=== PATIENT | female | born 1975 ===

== ENCOUNTER 2021-03-09 06:44 | Emergency (ER) | payer MEDICAID, SELFPAY ==
[2021-03-09 06:59] VITALS: BP 130/64; PULSE 55; RESP 18; TEMP 36.1; O2SAT 99; BMI 24.1
--- NOTE | 2021-03-09 07:54 | ED.ABDPAIN ---
HPI - Abdominal Pain General Chief Complaint: Abdominal Pain Stated Complaint: IBS; painful vomiting for 7+ hrs Time Seen by Provider: 03/09/21 07:46 Source: patient Mode of arrival: ambulatory History of Present Illness HPI narrative: this is a 46 years old the female who presented to the emergency department with chief complaint of abdominal pain nausea vomiting and diarrhea since yesterday MD elicited complaint: abdominal pain Pertinent past history: other (hx of IBS) Onset (ago): day(s) (1) Pain Consistency: constant Location: diffuse Quality: cramping Migration to: no migration Relieving factors: nothing Related Data Allergies Allergy/AdvReac Type Severity Reaction Status Date / Time No Known Allergies Allergy Unverified 11/06/19 16:37 [No Known Allergies*] Review of Systems Review of Systems Yes all other systems are reviewed and are negative Constitutional: Reports no additional constitutional complaints Eyes: Reports no additional eye complaints Reports system reviewed and no additional complaints, except as documented Cardiovascular: Reports no additional cardiovascular complaints Respiratory: Reports no additional respiratory complaints Reports system reviewed and no additional complaints, except as documented Physical Exam Vital Signs: Vital Signs: Last Vital Signs Temp 97.9 F 03/09/21 10:56 Pulse 67 03/09/21 10:56 Resp 14 03/09/21 10:56 BP 96/69 03/09/21 10:56 Pulse Ox 97 03/09/21 10:56 BMI result Body Mass Index 24.1 Const: General: cooperative Nutritional Appearance: well nourished Orientation/consciousness: patient oriented x3 HENMT: Head: Yes normal to inspection and Yes No palpable skull fracture present Ears: hearing grossly normal bilaterally General nose exam: Normal external nose present Face and sinus: Yes normal facial exam Mouth: Normal oral and palatal mucosa present Throat: Yes posterior oropharynx normal Neck: Neck: Yes normal visual inspection and Yes full ROM Chest: Chest palpation & inspection: normal inspection of the chest Resp: Effort & Inspection: normal respiratory effort and able to speak in complete sentences Auscultation: clear to auscultation bilaterally Cardio: Jugular venous distension: no JVD Rate: regular rate Rhythm: regular rhythm GI: Inspection: Yes normal to inspection Palpation (GI): Soft to palpation, not firm and nontender Percussion: Yes normal to percussion Auscultation: normal bowel sounds : General: Yes no CVA tenderness Back/Spine/Pelvis: Back: no CVA tenderness Neuro: General: patient oriented x3 Course Reevaluation(s) Reevaluation #1: patient was re-examined at this time 11:00, she is completely asymptomatic, she has no abdominal pain whatsoever. She wants to be discharged home. We discussed the CT scan number the patient refuse I do not need ct scan I feel great MDM - Abdominal Pain Lab Data Result diagrams: 03/09/21 08:15 03/09/21 08:15 Labs: Lab Results 03/09/21 03/09/21 03/09/21 Range/Units 08:15 08:15 08:15 WBC 14.0 H (4.8-10.8) X10*3/uL RBC 4.13 L (4.20-5.50) X10*6/uL Hgb 12.9 (12.0-16.0) g/dl Hct 38.3 (37.0-47.0) % MCV 92.7 (80.0-98.0) fL MCH 31.2 (27.0-33.0) pg MCHC 33.7 (31.0-35.0) g/dl RDW 12.6 (11.0-16.0) % Plt Count 232 (160-400) X10*3/uL MPV 11.1 (9.4-12.3) fL Immature Gran % (Auto) 0.4 (0.0-0.4) % Neut % (Auto) 86.5 H (45-73) % Lymph % (Auto) 10.2 L (20-40) % [place] % (Auto) 2.6 (2-11) % Eos % (Auto) 0.0 (0-4) % Baso % (Auto) 0.3 (0-2) % Lymph # (Auto) 1.4 (1.2-4.9) X10*3/uL [place] # (Auto) 0.4 (0.1-1.2) X10*3/uL Eos # (Auto) 0.0 (0.0-0.4) X10*3/uL Baso # (Auto) 0.0 (0.0-0.2) X10*3/uL Abs Immat Gran (auto) 0.06 H (0.00-0.03) X10*3/uL Absolute Neuts (auto) 12.1 H (2.0-8.3) x10*3/uL Absolute Nucleated RBC 0.000 (0.0-0.012) X10*3/uL Nucleated RBC % (auto) 0.0 (0.0-0.2) /100WBC Sodium 141 (135-145) mmol/L Potassium 3.8 (3.3-5.1) mmol/L Chloride 105 (96-108) mmol/L Carbon Dioxide 25 (22-29) mmol/L Anion Gap 15 (12-20) BUN 16 (9-16) mg/dL Creatinine 0.80 (0.5-1.4) mg/dL Estim Creat Clear Calc 79.9 Estimated GFR > 60 Random Glucose 140 H (60-115) mg/dL Calcium 10.1 (8.4-10.2) mg/dL Total Bilirubin 0.7 (0.0-1.0) mg/dL AST 16 (5-31) U/L ALT 20 (0-31) U/L Alkaline Phosphatase 66 (39-117) U/L Total Protein 8.2 H (6.5-8.0) g/dL Albumin 4.6 (3.5-5.0) g/dL Lipase 12 (8-78) U/L Beta HCG, Quant < 2 mIU/mL Discharge Plan Discharge Clinical Impression: Abdominal pain Patient Disposition: Home, Self-Care Instructions: Abdominal Pain (ED), Acute Nausea and Vomiting (ED) Additional Instructions: follow-up with your primary care physician or return to the emergency room if you worse a clear liquid diet today Interventions: ED Discharge Assessment Last Done: 03/09/21 11:18 Discharge Date/Time: 03/09/21 11:19 [facility] Past Medical History Source: unable to obtain Medical History (Updated 03/09/21 @ 11:02 by Mikhail Perkins MD) Irritable bowel Social History Social History Alcohol intake: never Patient Tobacco Use Status: Never used Tobacco Use of substances other than those prescribed or required for medical reasons: No Advance Directives: No Advance Directives Information Provided: No Patient : No
[2021-03-09 08:22] LABS: MANUAL DIFF FLAG NO
[2021-03-09 08:27] LABS: Basophils Percent Auto 0.3 % (0-2); Hematocrit 38.3 % (37.0-47.0); Hemoglobin 12.9 g/dl (12.0-16.0); Imm Gran Abs Auto 0.06 X10*3/uL (0.00-0.03); Imm Gran Pct Auto 0.4 % (0.0-0.4); Lymphocytes Absolute Auto 1.4 X10*3/uL (1.2-4.9); Lymphocytes Percent Auto 10.2 % (20-40); Mean Corpuscular HGB Conc 33.7 g/dl (31.0-35.0); Mean Corpuscular Hemoglobin 31.2 pg (27.0-33.0); Mean Corpuscular Volume 92.7 fL (80.0-98.0); Mean Platelet Volume 11.1 fL (9.4-12.3); Monocytes Absolute Auto 0.4 X10*3/uL (0.1-1.2); Monocytes Percent Auto 2.6 % (2-11); Neutrophils Absolute Auto 12.1 x10*3/uL (2.0-8.3); Neutrophils Percent Auto 86.5 % (45-73); Platelet Count 232 X10*3/uL (160-400); Red Blood Count 4.13 X10*6/uL (4.20-5.50); Red Cell Distribution Width 12.6 % (11.0-16.0)
[2021-03-09] MEDS: 0.9 % Sodium Chloride 1,000 ML 999 ML IVCONT (08:44)
[2021-03-09] MEDS: HYDROmorphone HCl 0.5 MG/0.5 ML SYRINGE IVPUSH (08:44)
[2021-03-09] MEDS: ondansetron HCL 4 MG/2 ML VIAL IVPUSH (08:44)
[2021-03-09 08:47] LABS: Alanine Aminotransferase 20 U/L (0-31); Albumin Level 4.6 g/dL (3.5-5.0); Alkaline Phosphatase 66 U/L (39-117); Anion Gap 15 (12-20); Aspartate Amino Transferase 16 U/L (5-31); Bilirubin Total 0.7 mg/dL (0.0-1.0); Blood Urea Nitrogen 16 mg/dL (9-16); Calcium 10.1 mg/dL (8.4-10.2); Carbon Dioxide 25 mmol/L (22-29); Chloride 105 mmol/L (96-108); Creatinine Clr Calc Pharmacy 79.9; Estimated Glomerular Filt Rate > 60; Glucose Random 140 mg/dL (60-115); Lipase 12 U/L (8-78); Potassium 3.8 mmol/L (3.3-5.1); Sodium 141 mmol/L (135-145); Total Protein 8.2 g/dL (6.5-8.0)
[2021-03-09 08:51] LABS: HCG Quantitative < 2 mIU/mL
[2021-03-09 09:44] VITALS: BP 100/52; PULSE 74; RESP 15; TEMP 37.2; O2SAT 98
[2021-03-09 10:56] VITALS: BP 96/69; PULSE 67; RESP 14; TEMP 36.6; O2SAT 97
== END 2021-03-09 11:19 | disposition home or self-care (01) ==
PROVIDERS: Emergency Provider Emergency Medicine
DX: K58.9 Irritable bowel syndrome, unspecified (principal); R10.9 Unspecified abdominal pain; Z79.899 Other long term (current) drug therapy
CPT/HCPCS: 36415; 80053; 83690; 84702; 85025; 96361; 96374; 96375; 99284; J1170; J2405

== ENCOUNTER 2021-05-22 10:13 | Emergency (ER) | payer MEDICAID, SELFPAY ==
[2021-05-22 10:16] VITALS: BP 133/72; PULSE 59; RESP 18; TEMP 36.2; O2SAT 99; BMI 25.0
[2021-05-22 11:42] VITALS: BP 113/61; PULSE 53; RESP 20; O2SAT 100
--- NOTE | 2021-05-22 11:48 | ED_ITS ---
HPI - Nausea/Vomiting/Diarrhea General Chief complaint: Nausea/Vomiting/Diarrhea Stated complaint: vomiting Time Seen by Provider: 05/22/21 11:35 Source: patient Mode of arrival: ambulatory History of Present Illness HPI Narrative: 46-year-old female with a past medical history of IBS presenting to the ED complaining of nausea, vomiting, nonbloody diarrhea, and abdominal pain since 04:00AM. Admits to similar symptoms in the past with her IBS. Reports chills. Denies fever, constipation, dysuria/hematuria, suspicious food intake. States unable to tolerate p.o. MD elicited complaint: nausea, vomiting, diarrhea and abdominal pain Onset (ago): hour(s) Related Data Allergies Allergy/AdvReac Type Severity Reaction Status Date / Time No Known Allergies Allergy Unverified 05/22/21 10:19 [No Known Allergies*] Review of Systems Review of Systems: Constitutional: No Fever, + Chills, No Fatigue, No Malaise ENT/Mouth: No Ear Pain, No Nasal Congestion, No Hoarseness, No sore throat, No Rhinorrhea, No Swallowing Difficulty Eyes: No Eye Pain, No Swelling, No Redness Cardiovascular: No Chest Pain, No SOB, No Dyspnea on Exertion, No Orthopnea, No Edema, No Palpitations Respiratory: No Cough, No Sputum, No Dyspnea Gastrointestinal: + Nausea, + Vomiting, + Diarrhea, No Constipation, + Abdominal pain, No Hematochezia, No Melena Genitourinary: No Dysuria, No Urinary Frequency, No Hematuria, No Flank Pain, No Urinary Flow Changes Musculoskeletal: No joint pain, No Myalgias, No Joint Swelling Skin: No Skin Lesions, No rash Neuro: No Weakness, No Numbness, No Dizziness, No Headache Yes all other systems are reviewed and are negative [facility] Past Medical History Attestation statement: The following information was validated with the patient. Medical History Irritable bowel Social History Social History Alcohol intake: never Patient Tobacco Use Status: Never used Tobacco Advance Directives: No Advance Directives Information Provided: No Patient : No Physical Exam Vital Signs: Vital Signs: Last Vital Signs Temp 98.8 F 05/22/21 15:25 Pulse 60 05/22/21 15:25 Resp 16 05/22/21 15:25 BP 118/58 L 05/22/21 15:25 Pulse Ox 97 05/22/21 15:25 BMI result Body Mass Index 25.0 Const: General: cooperative and no acute distress Orientation/consciousness: patient oriented x3 Limitations: no limitations HEENT: Head: Yes normal to inspection and Yes atraumatic Ears: hearing grossly normal bilaterally General nose exam: Normal external nose present Face and sinus: Yes normal facial exam Eyes: General: appearance normal, both eyes and all related structures EOM: EOMs intact bilaterally Neck: Neck: Yes normal visual inspection and Yes no meningeal signs Resp: Effort & Inspection: normal respiratory effort and no respiratory distress Auscultation: clear to auscultation bilaterally Cardio: Rate: regular rate Heart sounds: S1 normal heart sound present and S2 normal heart sound present GI: Inspection: Yes normal to inspection Palpation (GI): Soft to palpation, nontender, no guarding and not rigid Skin: Rashes: no rashes Wounds: no wounds Neuro: General: patient oriented x3 and no meningeal signs Gait exam (Neuro): Normal gait present Extrem: General: Yes normal to inspection Course Course Course Narrative: -1212--leukocytosis of 15.8 likely reactive from nausea/vomiting. Low concern f or severe sepsis -1314--potassium 5.3 however specimen hemolyzed, ALT mildly elevated to 35 -1400--on re-evaluation patient reports continued nausea. Requesting additional morphine, IVF and Reglan. Discussed CT scan however patient refused. Abdomen remains soft and nontender -1500--on re-evaluation patient denies abdominal pain. Will attempt p.o. challenge -1656--on re-evaluation patient is sleeping comfortably. Tolerated p.o. Glenna Mayra and saltines without nausea or vomiting. Plan to DC home with GI f/u MDM - Nausea/Vomiting/Diarrhea MDM Narrative Medical decision making narrative: 46-year-old female with a past medical history of IBS presenting to the ED complaining of nausea, vomiting, nonbloody diarrhea, and abdominal pain since 04:00AM. On exam vital signs stable, NAD/nontoxic appearing, abdomen soft/nontender. Concern for IBS flare vs dehydration vs gastroenteritis. Low concern for appendicitis/diverticulitis/pancreatitis/renal stone Plan: Labs, UA, IVF, symptomatic treatment, re-evaluate Differential Diagnosis Differential diagnosis: Likely food poisoning, gastroenteritis and dehydration Medical Records Attestation: I reviewed the patient's medical records. Lab Data Attestation: I reviewed the patient's lab results. Result diagrams: 05/22/21 11:53 05/22/21 12:42 Labs: Lab Results 05/22/21 05/22/21 Range/Units 11:53 12:42 WBC 15.8 H (4.8-10.8) X10*3/uL RBC 4.19 L (4.20-5.50) X10*6/uL Hgb 13.1 (12.0-16.0) g/dl Hct 38.6 (37.0-47.0) % MCV 92.1 (80.0-98.0) fL MCH 31.3 (27.0-33.0) pg MCHC 33.9 (31.0-35.0) g/dl RDW 12.9 (11.0-16.0) % Plt Count 244 (160-400) X10*3/uL MPV 11.3 (9.4-12.3) fL Immature Gran % (Auto) 0.5 H (0.0-0.4) % Neut % (Auto) 86.3 H (45-73) % Lymph % (Auto) 10.4 L (20-40) % [place] % (Auto) 2.3 (2-11) % Eos % (Auto) 0.1 (0-4) % Baso % (Auto) 0.4 (0-2) % Lymph # (Auto) 1.6 (1.2-4.9) X10*3/uL [place] # (Auto) 0.4 (0.1-1.2) X10*3/uL Eos # (Auto) 0.0 (0.0-0.4) X10*3/uL Baso # (Auto) 0.1 (0.0-0.2) X10*3/uL Abs Immat Gran (auto) 0.08 H (0.00-0.03) X10*3/uL Absolute Neuts (auto) 13.7 H (2.0-8.3) x10*3/uL Absolute Nucleated RBC 0.000 (0.0-0.012) X10*3/uL Nucleated RBC % (auto) 0.0 (0.0-0.2) /100WBC Sodium 139 (135-145) mmol/L Potassium 5.3 H D (3.3-5.1) mmol/L Chloride 108 (96-108) mmol/L Carbon Dioxide 20 L (22-29) mmol/L Anion Gap 16 (12-20) BUN 16 (9-16) mg/dL Creatinine 0.88 (0.5-1.4) mg/dL Estim Creat Clear Calc 72.6 Estimated GFR > 60 Random Glucose 151 H (60-115) mg/dL Calcium 9.3 D (8.4-10.2) mg/dL Magnesium 1.9 (1.6-2.6) mg/dL Total Bilirubin 0.7 (0.0-1.0) mg/dL Direct Bilirubin 0.2 (0.0-0.5) mg/dL AST 31 D (5-31) U/L ALT 35 H (0-31) U/L Alkaline Phosphatase 70 (39-117) U/L Total Protein 7.9 (6.5-8.0) g/dL Albumin 4.3 (3.5-5.0) g/dL Lipase 10 (8-78) U/L Discharge Plan Discharge Clinical Impression: Irritable bowel syndrome (IBS) Patient Disposition: Home, Self-Care Instructions: Irritable Bowel Syndrome (DC) Additional Instructions: Your blood work was reassuring today in the ED. Please continue home prescribed medications. 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 If you are unable to eat or drink, developed fever, persistent nausea or vomi ting, please return to the emergency department Referrals: Physician,Unknown J [Primary Care Provider] - 2 days
[2021-05-22 11:56] LABS: MANUAL DIFF FLAG NO
[2021-05-22] MEDS: ondansetron HCL 4 MG/2 ML VIAL IVPUSH (11:58)
[2021-05-22] MEDS: Ketorolac Tromethamine 15 MG/ML VIAL IVPUSH (11:58)
[2021-05-22] MEDS: Famotidine/PF 20 MG/2 ML VIAL IVPUSH (11:59)
[2021-05-22] MEDS: Magnesium Hydrox/Alum Hydrox 30 ML ORAL.SUSP PO (11:59)
[2021-05-22] MEDS: 0.9 % Sodium Chloride 1,000 ML 999 ML IV ×3 (11:59→15:57)
[2021-05-22] MEDS: Dicyclomine HCl 10 MG CAPSULE 20 MG PO (11:59)
[2021-05-22 12:02] LABS: Basophils Absolute Auto 0.1 X10*3/uL (0.0-0.2); Basophils Percent Auto 0.4 % (0-2); Eosinophils Percent Auto 0.1 % (0-4); Hematocrit 38.6 % (37.0-47.0); Hemoglobin 13.1 g/dl (12.0-16.0); Imm Gran Abs Auto 0.08 X10*3/uL (0.00-0.03); Imm Gran Pct Auto 0.5 % (0.0-0.4); Lymphocytes Absolute Auto 1.6 X10*3/uL (1.2-4.9); Lymphocytes Percent Auto 10.4 % (20-40); Mean Corpuscular HGB Conc 33.9 g/dl (31.0-35.0); Mean Corpuscular Hemoglobin 31.3 pg (27.0-33.0); Mean Corpuscular Volume 92.1 fL (80.0-98.0); Mean Platelet Volume 11.3 fL (9.4-12.3); Monocytes Absolute Auto 0.4 X10*3/uL (0.1-1.2); Monocytes Percent Auto 2.3 % (2-11); Neutrophils Absolute Auto 13.7 x10*3/uL (2.0-8.3); Neutrophils Percent Auto 86.3 % (45-73); Platelet Count 244 X10*3/uL (160-400); Red Blood Count 4.19 X10*6/uL (4.20-5.50); Red Cell Distribution Width 12.9 % (11.0-16.0); White Blood Count 15.8 X10*3/uL (4.8-10.8)
[2021-05-22] MEDS: Morphine Sulfate 2 MG/ML CARTRIDGE IVPUSH ×2 (12:33→14:11)
[2021-05-22] MEDS: Metoclopramide HCl 10 MG/2 ML VIAL IVPUSH (12:33)
[2021-05-22 13:05] LABS: Alanine Aminotransferase 35 U/L (0-31); Albumin Level 4.3 g/dL (3.5-5.0); Alkaline Phosphatase 70 U/L (39-117); Anion Gap 16 (12-20); Aspartate Amino Transferase 31 U/L (5-31); Bilirubin Direct 0.2 mg/dL (0.0-0.5); Bilirubin Total 0.7 mg/dL (0.0-1.0); Blood Urea Nitrogen 16 mg/dL (9-16); Calcium 9.3 mg/dL (8.4-10.2); Carbon Dioxide 20 mmol/L (22-29); Chloride 108 mmol/L (96-108); Creatinine Clr Calc Pharmacy 72.6; Estimated Glomerular Filt Rate > 60; Glucose Random 151 mg/dL (60-115); Lipase 10 U/L (8-78); Magnesium 1.9 mg/dL (1.6-2.6); Potassium 5.3 mmol/L (3.3-5.1); Sodium 139 mmol/L (135-145); Total Protein 7.9 g/dL (6.5-8.0)
[2021-05-22 13:44] VITALS: BP 119/49; PULSE 48; RESP 18; O2SAT 99
[2021-05-22] MEDS: diphenhydrAMINE HCL 50 MG/ML VIAL IVPUSH (14:11)
[2021-05-22 15:25] VITALS: BP 118/58; PULSE 60; RESP 16; TEMP 37.1; O2SAT 97
[2021-05-22] MEDS: Prochlorperazine Edisylate 10 MG/2 ML VIAL 5 MG IVPUSH (15:42)
== END 2021-05-22 17:34 | disposition home or self-care (01) ==
PROVIDERS: Physician Assistant; Emergency Provider Emergency Medicine Emergency Medical Services
DX: K58.0 Irritable bowel syndrome with diarrhea (principal); R11.2 Nausea with vomiting, unspecified; R19.7 Diarrhea, unspecified; Z79.899 Other long term (current) drug therapy
CPT/HCPCS: 36415; 80048; 80076; 83690; 83735; 85025; 96374; 96375; 99284; J1200; J1885; J2270; J2405; J2765

== ENCOUNTER 2022-12-12 09:44 | Outpatient (AMB) | payer OTHER, SELFPAY ==
[2022-12-12 09:49] VITALS: BP 122/74; PULSE 69; O2SAT 100; BMI 25.8
--- NOTE | 2022-12-12 09:49 | MHC.PC.OV ---
Vital Signs 12/12/22 09:49 Height 5 ft 5 in Weight 155 lb 0.4 oz BMI 25.8 BP 122/74 Blood Pressure Location Lt brachial Position Sitting Pulse 69 Pulse Source Pulse Oximeter Pulse Oximetry (%) 100 Oxygen Delivery Method Room Air Intake Visit Reasons: New patient-Transfer from [employer] Required: No Allergies No Known Allergies [No Known Allergies*] Allergy (Verified 12/12/22 09:53) Medication List - Last Reconciled 12/12/22 by Kely Morrell MD cetirizine 10 mg PO DAILY PRN cholecalciferol (vitamin D3) 50 mcg PO DAILY Tobacco use date assessed: 12/12/22 Dental Screening Dental Screen Date: 12/12/22 Did you have a dental visit in the last 12 months?: Yes Did you have a dental problem in the last 6 months where you did not have access to dental care?: No Was dental information given to patient?: Patient has dentist HPI New patient-Transfer from HPI Details 47-year-old female smoker with a history of IBS, generalized anxiety disorder and history of nephrolithiasis. Declined blood work, declined vaccinations, declined referral for counseling did discuss strongly about stopping smoking! [facility] Medical History Irritable bowel Family History (Updated 12/12/22 @ 10:26 by Kely Morrell MD) Father Heart attack Maternal Grandmother Jaw cancer Breast cancer Paternal Grandmother Oral cancer Social History (Updated 12/12/22 @ 10:28 by Kely Morrell MD) Housing: Apartment Alcohol intake: never Patient Tobacco Use Status: Current everyday Tobacco user Cigarette Packs Per Day: 0.5 Years Smoked: 1/4 pack a day 30 years. e-Cigarette/Vaping Use: Never Used service: No Current occupational status: retired Cognitive needs: No Hearing needs: No Vision needs: No Questionnaire PHQ-9 Over the last 2 weeks, how often have you been bothered by any of the following problems? 1. Little interest or pleasure in doing things: not at all 2. Feeling down, depressed, or hopeless: not at all 3. Trouble falling or staying asleep, or sleeping too much: not at all 4. Feeling tired or having little energy: not at all 5. Poor appetite or overeating: not at all 6. Feeling bad about yourself - or that you are a failure or have let yourself or your family down: not at all 7. Trouble concentrating on things, such as reading the newspaper or watching television: not at all 8. Moving or speaking so slowly that other people could have noticed. Or the opposite - being so fidgety or restless that you have been moving around a lot more than usual: not at all 9. Thoughts that you would be better off or of hurting yourself in some way: not at all Total score: 0 Depression Screening Interpretation: Negative Depression Screening Done: Yes Source: Developed by Drs. Darrel Vega, Cindy Jacobs, David Grey and colleagues, with an educational zehra from [employer]. Thrive Questionnaire Date Thrive assessed: 12/12/22 I am a: Patient What is your living situation today?: I have a steady place to live Within the past 12 months, did the food you bought not last and you didn't have the money to get more?: Never true Within the past 12 months, did you worry whether your food would run out before you got money to buy more?: Never true Do you have trouble paying for medicines?: No Do you have trouble getting transportation to medical appointments?: No Do you have trouble paying your heating and electricity bill?: No Do you have trouble taking care of your child, family member or friend?: No Do you have trouble with day-to-day activities such as bathing, preparing meals, shopping, managing finances, etc.?: No Are you currently unemployed and looking for a job?: No Are you interested in more education?: No AUDIT C Alcohol Use Questionnaire (AUDIT-C) 1. How often do you have a drink containing alcohol?: Never 2. How many drinks containing alcohol do you have on a typical day when you are drinking?: 1 or 2 (0) 3. How often do you have six or more drinks on one occasion?: Never Total Score: 0 TYE-7 AMB Questionnaire YTE-7 Date TYE - 7 assessed: 12/12/22 Feeling nervous, anxious, or on edge: 1 = Several days Not being able to stop or control worryin = Not at all Worrying too much about different things: 0 = Not at all Trouble relaxin = Not at all Being so restless that it is hard to sit still: 0 = Not at all Becoming easily annoyed or irritable: 0 = Not at all Feeling afraid as if something awful might happen: 0 = Not at all Total TYE-7 score (0-4 normal; 5-9 mild; 10-14 moderate; 15-21 severe): 1 Source: Developed by Drs. Darrel Vega, Cindy Jacobs, David Grey and colleagues, with an educational zehra from [employer]. Physical exam (Primary Care) Vital Signs: Last Vital Signs Pulse 69 12/12/22 09:49 BP 122/74 12/12/22 09:49 Pulse Ox 100 12/12/22 09:49 Oxygen Delivery Method Room Air 12/12/22 09:49 BMI result Body Mass Index 25.8 Tobacco/Smoking Status: Tobacco use Status Tobacco use date assessed 12/12/22 12/12/22 09:50 Patient Tobacco Use Status Current everyday Tobacco 12/12/22 09:50 e-Cigarette/Vaping Use Never Used 12/12/22 09:50 PHQ-9: PHQ-9 Score PHQ-9: Total score 0 12/12/22 09:50 Depression Screening Interpretation: Negative Thrive Assessment: Date of Thrive Assessment Date Thrive assessed 12/12/22 12/12/22 09:50 Const General: alert; No acute distress Eyes Conjunctivae: conjunctivae normal Resp Auscultation: clear to auscultation bilaterally Cardio Rate: regular rate Rhythm: regular rhythm GI Inspection: Yes normal to inspection Extrem General: Yes normal to inspection and No edema Assessment and Plan Assessment & Plan (1) Anxiety, generalized: Code(s): F41.1 - Generalized anxiety disorder (2) Colon cancer screening: Comment: Dr. Benz 2016 Code(s): Z12.11 - Encounter for screening for malignant neoplasm of colon Plan: Reminded about colonoscopy (3) Tobacco use: Code(s): Z72.0 - Tobacco use Plan: Strongly advised to stop smoking! (4) IBS (irritable bowel syndrome): Code(s): K58.9 - Irritable bowel syndrome without diarrhea Plan: Keep well-hydrated, eat healthy and keep active (5) Breast cancer screening by mammogram: Code(s): Z12.31 - Encounter for screening mammogram for malignant neoplasm of breast (6) Cervical cancer screening: Code(s): Z12.4 - Encounter for screening for malignant neoplasm of cervix Orders: Orders MM tomosynthesis screening BI Today Z12.31 - Encounter for screening mammogram for malignant neoplasm of breast Referrals [employer] Referral Z12.4 - Encounter for screening for malignant neoplasm of cervix Medications: New hydroxyzine HCl 25 mg PO BEDTIME 30 tabs 2RF F41.1 - Generalized anxiety disorder Coding Level of Care Code Est Pt Level 4 (57807) Diagnoses Anxiety, generalized F41.1 Colon cancer screening Z12.11 Tobacco use Z72.0 IBS (irritable bowel syndrome) K58.9 Breast cancer screening by mammogram Z12.31 Cervical cancer screening Z12.4
== END 2022-12-12 10:46 | disposition home or self-care (01) ==
PROVIDERS: PCP Internal Medicine; Visit Provider Internal Medicine
DX: F41.1 Generalized anxiety disorder (principal); Z12.11 Encounter for screening for malignant neoplasm of colon; Z72.0 Tobacco use; K58.9 Irritable bowel syndrome, unspecified; Z12.31 Encounter for screening mammogram for malignant neoplasm of breast; Z12.4 Encounter for screening for malignant neoplasm of cervix
CPT/HCPCS: 99214

== ENCOUNTER 2023-04-03 11:22 | Outpatient (AMB) | payer OTHER, SELFPAY ==
--- NOTE | 2023-04-03 11:23 | A.OFFPC_ITS ---
Vital Signs 04/03/23 11:24 Height 5 ft 5 in Weight 160 lb BMI 26.6 BP 100/62 Blood Pressure Location Lt brachial Position Sitting Pulse 72 Pulse Source Pulse Oximeter Pulse Oximetry (%) 99 Oxygen Delivery Method Room Air Intake Visit Reasons: Annual Exam Intake Note: Patient is here today for a physical. 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 Required: No Allergies No Known Allergies [No Known Allergies*] Allergy (Verified 04/03/23 11:31) Medication List - Last Reconciled 04/03/23 by Kely Morrell MD hydroxyzine HCl 25 mg PO BEDTIME Tobacco use date assessed: 04/03/23 Dental Screening Dental Screen Date: 04/03/23 Did you have a dental visit in the last 12 months?: Yes Did you have a dental problem in the last 6 months where you did not have access to dental care?: No Was dental information given to patient?: Patient has dentist HPI Annual Exam HPI Details 48 Year old overweight female smoker wit h generalized anxiety disorder last seen in November 2022. Patient is here for physical exam. syncopal episode and had diarrheaat that time october , no Er visit. [facility] Medical History Irritable bowel Family History (Updated 04/03/23 @ 11:41 by Kely Morrell MD) Father Heart attack Maternal Grandmother Jaw cancer Breast cancer Paternal Grandmother Oral cancer Maternal Grandfather CVA (cerebral vascular accident) Social History (Updated 04/03/23 @ 11:41 by Kely Morrell MD) Housing: Apartment Alcohol intake: never Patient Tobacco Use Status: Current everyday Tobacco user Cigarette Packs Per Day: 0.5 Years Smoked: 1/4 pack a day 30 years. , 6 a day (03/2023) e-Cigarette/Vaping Use: Never Used service: No Current occupational status: retired Cognitive needs: No Hearing needs: No Vision needs: No Questionnaire PHQ-9 Over the last 2 weeks, how often have you been bothered by any of the following problems? 1. Little interest or pleasure in doing things: not at all 2. Feeling down, depressed, or hopeless: not at all 3. Trouble falling or staying asleep, or sleeping too much: not at all 4. Feeling tired or having little energy: not at all 5. Poor appetite or overeating: not at all 6. Feeling bad about yourself - or that you are a failure or have let yourself or your family down: not at all 7. Trouble concentrating on things, such as reading the newspaper or watching television: not at all 8. Moving or speaking so slowly that other people could have noticed. Or the opposite - being so fidgety or restless that you have been moving around a lot more than usual: not at all 9. Thoughts that you would be better off or of hurting yourself in some way: not at all Total score: 0 Depression Screening Interpretation: Negative Depression Screening Done: Yes 01671 - PHQ-9 Billing: Yes Source: Developed by Drs. Darrel Vega, Cindy Jacobs, David Grey and colleagues, with an educational zehra from [employer]. Thrive Questionnaire Date Thrive assessed: 04/03/23 I am a: Patient What is your living situation today?: I have a steady place to live Within the past 12 months, did the food you bought not last and you didn't have the money to get more?: Never true Within the past 12 months, did you worry whether your food would run out before you got money to buy more?: Never true Do you have trouble paying for medicines?: No Do you have trouble getting transportation to medical appointments?: No Do you have trouble paying your heating and electricity bill?: No Do you have trouble taking care of your child, family member or friend?: No Do you have trouble with day-to-day activities such as bathing, preparing meals, shopping, managing finances, etc.?: No Are you currently unemployed and looking for a job?: No Are you interested in more education?: No Please select the resources that you would like help with: None THRIVE Score: 0 TYE-7 AMB Questionnaire TYE-7 Date TYE - 7 assessed: 04/03/23 Feeling nervous, anxious, or on edge: 0 = Not at all Not being able to stop or control worryin = Not at all Worrying too much about different things: 0 = Not at all Trouble relaxin = Not at all Being so restless that it is hard to sit still: 0 = Not at all Becoming easily annoyed or irritable: 0 = Not at all Feeling afraid as if something awful might happen: 0 = Not at all Total TYE-7 score (0-4 normal; 5-9 mild; 10-14 moderate; 15-21 severe): 0 Source: Developed by Drs. Darrel Vega, Cindy Jacobs, David Grey and colleagues, with an educational zehra from [employer]. Review of Systems Const Denies poor appetite and Denies weakness Eyes Denies no additional complaints ENT Reports Normal hearing present, Denies dizziness, Denies nasal congestion, Denies tinnitus and Denies sore throat Card Denies chest pain, Denies syncope, Denies rapid heart rate and Denies dyspnea Resp Denies cough and Denies dyspnea GI Denies change in stool character, Reports constipation, Denies diarrhea, Denies nausea and Denies vomiting Denies urinary frequency, Denies difficulty voiding and Denies dysuria Neuro Reports Normal hearing present, Denies confusion, Denies dizziness, Denies syncope and Denies weakness Psych Denies confusion Physical exam (Primary Care) Vital Signs: Last Vital Signs Pulse 72 04/03/23 11:24 BP 100/62 04/03/23 11:24 Pulse Ox 99 04/03/23 11:24 Oxygen Delivery Method Room Air 04/03/23 11:24 BMI result Body Mass Index 26.6 Tobacco/Smoking Status: Tobacco use Status Tobacco use date assessed 04/03/23 04/03/23 11:34 Patient Tobacco Use Status Current everyday Tobacco 04/03/23 11:26 e-Cigarette/Vaping Use Never Used 04/03/23 11:26 PHQ-9: PHQ-9 Score PHQ-9: Total score 0 04/03/23 11:34 Depression Screening Interpretation: Negative Thrive Assessment: Date of Thrive Assessment Date Thrive assessed 04/03/23 04/03/23 11:34 Const General: No confusion Orientation/consciousness: No confusion HENMT Head: Yes normocephalic Ears: external ears normal and TM's normal bilaterally Face and sinus: Yes normal facial exam Mouth: moist mucous membranes Throat: Yes tonsils normal Eyes Conjunctivae: conjunctivae normal Pupils: Equal, round and reactive pupils present and Pupil accommodation reflex normal Direct Ophthalmoscopy: normal light reflex Neck Neck: No lymphadenopathy Thyroid: Thyroid normal Chest Chest palpation & inspection: normal inspection of the chest Resp Effort & Inspection: normal respiratory effort and no audible wheezes Auscultation: clear to auscultation bilaterally, no crackles, no wheezes and lung sounds not diminished Cardio Rate: regular rate Rhythm: regular rhythm Peripheral pulses: radial pulses present and dorsalis pedis present GI Palpation (GI): no masses Auscultation: normal bowel sounds and normoactive bowel sounds Rectal Exam - Female: deferred Skin General skin exam: no rashes or lesions noted Rashes: no rashes Neuro General: No confusion Cranial nerves: Yes Equal, round and reactive pupils present and Yes Normal hearing present Cognition (Neuro): normal cognition Gait exam (Neuro): Normal gait present Motor exam (neuro): 5/5 motor strength present throughout Deep tendon reflexes (DTR's): Right brachioradialis reflex intensity grade: 2+, Left brachioradialis reflex intensity grade: 2+, Right patellar reflex intensity grade: 2+ and Left patellar reflex intensity grade: 2+ Extrem General: No edema Assessment and Plan Assessment & Plan (1) Annual physical exam: Code(s): Z00.00 - Encounter for general adult medical examination without abnormal findings (2) Breast cancer screening by mammogram: Code(s): Z12.31 - Encounter for screening mammogram for malignant neoplasm of breast Plan: Reminded about mammogram (3) Tobacco use: Code(s): Z72.0 - Tobacco use Plan: Patient is strongly advised to stop smoking. (4) Anxiety, generalized: Code(s): F41.1 - Generalized anxiety disorder Plan: Discussed about counseling and therapy Orders: Orders Comprehensive Met. Panel Today Z00.00 - Encounter for general adult medical examination without abnormal findings Vitamin D 25-OH Total Today Z00.00 - Encounter for general adult medical examination without abnormal findings Complete Blood Count Auto Diff Today Z00.00 - Encounter for general adult medical examination without abnormal findings Free T4 (Free Thyroxine) Today Z00.00 - Encounter for general adult medical examination without abnormal findings Lipid Panel Today E78.00 - Pure hypercholesterolemia, unspecified, Z00.00 - Encounter for general adult medical examination without abnormal findings Thyroid Stimulating Hormone Today Z00.00 - Encounter for general adult medical examination without abnormal findings Vitamin B12 and Folate Today Z00.00 - Encounter for general adult medical ex amination without abnormal findings UA CC w/rflx Micro + Cult Today R30.0 - Dysuria, Z00.00 - Encounter for general adult medical examination without abnormal findings Medications: Refilled hydroxyzine HCl 25 mg PO BEDTIME 90 tabs 2RF F41.1 - Generalized anxiety disorder Coding Level of Care Code Est Pt Prev Care 40-64y(14538) Diagnoses Annual physical exam Z00.00 Breast cancer screening by mammogram Z12.31 Tobacco use Z72.0 Anxiety, generalized F41.1
[2023-04-03 11:24] VITALS: BP 100/62; PULSE 72; O2SAT 99; BMI 26.6
== END 2023-04-03 12:03 | disposition home or self-care (01) ==
PROVIDERS: PCP Internal Medicine; Visit Provider Internal Medicine
DX: Z00.00 Encounter for general adult medical examination without abnormal findings (principal); Z12.31 Encounter for screening mammogram for malignant neoplasm of breast; Z72.0 Tobacco use; F41.1 Generalized anxiety disorder
CPT/HCPCS: 99396

== ENCOUNTER 2023-04-16 08:39 | Outpatient (REF) | payer OTHER, SELFPAY | END 2023-04-16 08:40 | disposition home or self-care (01) | LOC: HO.MAMMO 08:39 | PROVIDERS: PCP Internal Medicine; Visit Provider Internal Medicine | DX: Z12.31 Encounter for screening mammogram for malignant neoplasm of breast (principal) | CPT/HCPCS: 77063; 77067 ==

== ENCOUNTER → 2023-04-16 09:00 | Outpatient (BNV) | payer OTHER, SELFPAY | PROVIDERS: PCP Internal Medicine; Visit Provider Radiology Diagnostic Radiology | DX: Z12.31 Encounter for screening mammogram for malignant neoplasm of breast (principal) | CPT/HCPCS: 77063; 77067 ==

== ENCOUNTER 2023-05-01 09:47 | Outpatient (REF) | payer OTHER, SELFPAY ==
[2023-05-04 06:33] LABS: HPV mRNA E6/E7 rflx Not Detected (Not Detected)
== END 2023-05-01 09:48 | disposition home or self-care (01) ==
LOC: HO.LNP 09:47
PROVIDERS: PCP Internal Medicine; Visit Provider Obstetrics & Gynecology
DX: Z01.419 Encounter for gynecological examination (general) (routine) without abnormal findings (principal)
CPT/HCPCS: 87624; 88142; 99386

== ENCOUNTER 2023-05-01 09:47 | Outpatient (AMB) | payer OTHER, SELFPAY ==
[2023-05-01 10:03] VITALS: BP 110/74; BMI 26.4
--- NOTE | 2023-05-01 10:03 | MHC.OFFVIS ---
Intake Vital Signs 05/01/23 10:03 Height 5 ft 5 in Weight 158 lb 11.725 oz BMI 26.4 BP 110/74 Intake Visit Reasons: New patient Annual Intake Note: ? 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 No complaints. Last Pap/HPV Last Mammogram was in 04/14, the report is still pending Last colonoscopy was 5 years ago, the recommendation was to repeat in 10 years [facility] Medical History History of kidney stones Irritable bowel Family History Father Heart attack Maternal Grandmother Jaw cancer Breast cancer Paternal Grandmother Oral cancer Maternal Grandfather CVA (cerebral vascular accident) Social History Housing: Apartment Alcohol intake: never Patient Tobacco Use Status: Current everyday Tobacco user Cigarette Packs Per Day: 0.5 Years Smoked: 1/4 pack a day 30 years. , 6 a day (03/2023) e-Cigarette/Vaping Use: Never Used service: No Current occupational status: retired Cognitive needs: No Hearing needs: No Vision needs: No Female Reproductive History Menstrual Menopause type: natural Total pregnancies: 0 Date of Mammogram: 04/16/23 Review of Systems Const All systems reviewed & are unremarkable except as noted in HPI and below Card Reports as per HPI Resp Reports as per HPI GI Reports as per HPI and Reports no additional complaints Reports as per HPI Physical Exam Vital Signs: Last Vital Signs BP 110/74 05/01/23 10:03 BMI result Body Mass Index 26.4 Const General: cooperative, healthy appearing and comfortable Chest Chest palpation & inspection: normal inspection of the chest and normal palpation of entire chest wall Breast/axilla inspection: normal inspection of the breasts and normal inspection of the axillae Breast/axilla palpation: normal palpation of the breasts, normal palpation of the axillae and no axillary lymphadenopathy Resp Effort & Inspection: normal respiratory effort Auscultation: clear to auscultation bilaterally Percussion: percussion normal Cardio Palpation: normal PMI Rate: regular rate Rhythm: regular rhythm Heart sounds: no murmurs and no rubs Peripheral pulses: Peripheral pulses 2+ throughout GI Inspection: Yes normal to inspection Palpation (GI): Soft to palpation, nontender, no guarding, not rigid and No hepatosplenomegaly present Percussion: Yes normal to percussion Auscultation: normal bowel sounds Rectal Exam - Female: deferred General: Yes bladder normal to palpation External Female Exam: No lesion Speculum Exam - Vagina: normal appearance of the vagina, normal palpation, normal vaginal discharge and not erythematous Speculum Exam - Cervix: normal appearance of the cervix and normal palpation Bimanual exam- vagina & uterus: normal bimanual exam, normal palpation, uterine size normal, bladder normal to palpation, consistency normal and normal palpation Bimanual Exam- Adnexa, other: normal adnexae, no masses and no tenderness Assessment & Plan Assessment & Plan (1) Well woman exam: Code(s): Z01.419 - Encounter for gynecological examination (general) (routine) without abnormal findings Plan: Cotesting done. Instructions given the patient to schedule her next screening Mammogram in 04/15. Counseled the patient about the recommended dietary allowance of 1000 mg of Calcium & 600 IU of vitamin D. The patient was instructed to perform monthly self-breast exams and to schedule an annual exam in a year; All questions answered and the patient verbalized understanding. Instructed the patient to schedule annual exam in a year Coding Level of Care Code New Pt Prev Care 40-64y(05165) Diagnoses Well woman exam Z01.419
== END 2023-05-01 10:37 | disposition home or self-care (01) ==
LOC: HO.HWS 09:47
PROVIDERS: PCP Internal Medicine; Visit Provider Obstetrics & Gynecology
DX: Z01.419 Encounter for gynecological examination (general) (routine) without abnormal findings (principal)
CPT/HCPCS: 99386

== ENCOUNTER 2023-10-15 10:24 | Outpatient (REF) | payer OTHER, SELFPAY ==
[2023-10-15 10:52] LABS: MANUAL DIFF FLAG NO
[2023-10-15 11:47] LABS: Basophils Percent Auto 0.5 % (0-2); Eosinophils Absolute Auto 0.2 X10*3/uL (0.0-0.4); Eosinophils Percent Auto 2.8 % (0-4); Hematocrit 42.8 % (37.0-47.0); Hemoglobin 14.5 g/dl (12.0-16.0); Imm Gran Abs Auto 0.03 X10*3/uL (0.00-0.03); Imm Gran Pct Auto 0.4 % (0.0-0.4); Lymphocytes Absolute Auto 3.1 X10*3/uL (1.2-4.9); Lymphocytes Percent Auto 37.2 % (20-40); Mean Corpuscular HGB Conc 33.9 g/dl (31.0-35.0); Mean Corpuscular Volume 91.5 fL (80.0-98.0); Monocytes Absolute Auto 0.5 X10*3/uL (0.1-1.2); Neutrophils Absolute Auto 4.4 x10*3/uL (2.0-8.3); Neutrophils Percent Auto 53.1 % (45-73); Platelet Count 231 X10*3/uL (160-400); Red Blood Count 4.68 X10*6/uL (4.20-5.50); White Blood Count 8.3 X10*3/uL (4.8-10.8)
[2023-10-15 12:32] LABS: Alanine Aminotransferase 28 U/L (0-31); Albumin Level 4.8 g/dL (3.5-5.0); Alkaline Phosphatase 81 U/L (39-117); Anion Gap 16 (12-20); Aspartate Amino Transferase 22 U/L (5-31); Bilirubin Total 0.7 mg/dL (0.0-1.0); Blood Urea Nitrogen 15 mg/dL (9-16); Carbon Dioxide 23 mmol/L (22-29); Chloride 105 mmol/L (96-108); Cholesterol 309 mg/dL (<200); Estimated Glomerular Filt Rate > 60; Glucose Random 90 mg/dL (60-115); HDL Cholesterol 45 mg/dL (>40); LDL Cholesterol Calculated 192 mg/dL (<100); Sodium 140 mmol/L (135-145); Total Protein 8.6 g/dL (6.5-8.0); Triglycerides 361 mg/dL (<150)
[2023-10-15 12:39] LABS: Free T4 (Free Thyroxine) 0.84 ng/dL (0.71-1.85); Thyroid Stimulating Hormone 1.27 uIU/mL (0.32-4.0); Vitamin D 25-OH Total 32.1 ng/mL (>30)
[2023-10-15 12:47] LABS: Folate 8.2 ng/mL (> or = 4.0); Vitamin B12 498 pg/mL (200-900)
[2023-10-15 13:35] LABS: Appearance Urine Clear; Color Urine Yellow; Glucose Urine UA Negative (Negative); Leukocyte Esterase Urine Trace (Negative); Nitrite Urine Negative (Negative); PH 7.5 (5.0-9.0); UMIC TRIGGER UACC YES; Urine Blood Large (3+) (Negative); Urine Ketones Negative (Negative); Urine Protein 30 (1+) mg/dL (Neg-Trace)
[2023-10-15 13:51] LABS: Bacteria Urine None Seen (None Seen); RBC Urine >20 /HPF (0-2); Squamous Epithelial Cell Urine 0-2 /HPF (0-2); WBC Urine 0-5 /HPF (0-5)
== END 2023-10-15 10:25 | disposition home or self-care (01) ==
LOC: HO.LAB 10:24
PROVIDERS: PCP Internal Medicine; Visit Provider Internal Medicine
DX: Z00.00 Encounter for general adult medical examination without abnormal findings (principal); E78.00 Pure hypercholesterolemia, unspecified
CPT/HCPCS: 36415; 80053; 80061; 81001; 82306; 82607; 82746; 84439; 84443; 85025

== ENCOUNTER 2023-10-16 09:40 | Outpatient (AMB) | payer OTHER, SELFPAY ==
[2023-10-16 09:41] VITALS: BP 122/88; PULSE 78; O2SAT 98; BMI 26.5
--- NOTE | 2023-10-16 09:41 | A.OFFPC_ITS ---
Vital Signs 10/16/23 09:41 Height 5 ft 5 in Weight 159 lb BMI 26.5 BP 122/88 Blood Pressure Location Lt brachial Position Sitting Pulse 78 Pulse Source Pulse Oximeter Pulse Oximetry (%) 98 Oxygen Delivery Method Room Air Intake Visit Reasons: 6 Month F/U Allergies No Known Allergies [No Known Allergies*] Allergy (Verified 10/16/23 09:41) Medication List - Last Reconciled 10/16/23 by Kely Morrell MD hydroxyzine HCl 25 mg PO BEDTIME [THC gummies PO] Tobacco use date assessed: 04/03/23 Dental Screening Dental Screen Date: 04/03/23 HPI 6 Month F/U HPI Details 48-year-old overweight female smoker wit h a history of generalized anxiety disorder coming in for follow-up. Last seen in March 2023 for physical exam. Patient's mammogram is up-to-date colon cancer screening is up-to-date 2015. 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 , 6 a day (03/2023) e-Cigarette/Vaping Use: Never Used service: No Current occupational status: retired Cognitive needs: No Hearing needs: No Vision needs: No Questionnaire PHQ-9 Over the last 2 weeks, how often have you been bothered by any of the following problems? 1. Little interest or pleasure in doing things: not at all 2. Feeling down, depressed, or hopeless: not at all 3. Trouble falling or staying asleep, or sleeping too much: not at all 4. Feeling tired or having little energy: not at all 5. Poor appetite or overeating: not at all 6. Feeling bad about yourself - or that you are a failure or have let yourself or your family down: not at all 7. Trouble concentrating on things, such as reading the newspaper or watching television: not at all 8. Moving or speaking so slowly that other people could have noticed. Or the opposite - being so fidgety or restless that you have been moving around a lot more than usual: not at all 9. Thoughts that you would be better off or of hurting yourself in some way: not at all Total score: 0 Depression Screening Interpretation: Negative Depression Screening Done: Yes 83974 - PHQ-9 Billing: Yes Source: Developed by Drs. Darrel Vega, David Wells and colleagues, with an educational zehra from [employer]. Thrive Questionnaire Date Thrive assessed: 04/03/23 AUDIT C Alcohol Use Questionnaire (AUDIT-C) 1. How often do you have a drink containing alcohol?: Never 2. How many drinks containing alcohol do you have on a typical day when you are drinking?: 1 or 2 (0) 3. How often do you have six or more drinks on one occasion?: Never Total Score: 0 TYE-7 AMB Questionnaire TYE-7 Date TYE - 7 assessed: 10/16/23 Feeling nervous, anxious, or on edge: 0 = Not at all Not being able to stop or control worryin = Not at all Worrying too much about different things: 0 = Not at all Trouble relaxin = Not at all Being so restless that it is hard to sit still: 0 = Not at all Becoming easily annoyed or irritable: 0 = Not at all Feeling afraid as if something awful might happen: 0 = Not at all Total TYE-7 score (0-4 normal; 5-9 mild; 10-14 moderate; 15-21 severe): 0 Source: Developed by Drs. Darrel Vega, David Wells and colleagues, with an educational zehra from [employer]. Physical exam (Primary Care) Vital Signs: Last Vital Signs Pulse 78 10/16/23 09:41 BP 122/88 10/16/23 09:41 Pulse Ox 98 10/16/23 09:41 Oxygen Delivery Method Room Air 10/16/23 09:41 BMI result Body Mass Index 26.5 Tobacco/Smoking Status: Tobacco use Status Tobacco use date assessed 04/03/23 10/16/23 09:44 Patient Tobacco Use Status Current everyday Tobacco 10/16/23 09:44 Tobacco use type Cigarette 10/16/23 09:44 e-Cigarette/Vaping Use Never Used 10/16/23 09:44 PHQ-9: PHQ-9 Score PHQ-9: Total score 0 10/16/23 09:44 Depression Screening Interpretation: Negative Thrive Assessment: Date of Thrive Assessment Date Thrive assessed 04/03/23 10/16/23 09:44 Const General: alert; No acute distress Eyes Conjunctivae: conjunctivae normal Resp Auscultation: clear to auscultation bilaterally Cardio Rate: regular rate Rhythm: regular rhythm GI Inspection: Yes normal to inspection Extrem General: Yes normal to inspection and No edema Assessment and Plan Assessment & Plan (1) Tobacco use: Code(s): Z72.0 - Tobacco use Plan: Patient is strongly advised to stop smoking! (2) Overweight (BMI 25.0-29.9): Code(s): E66.3 - Overweight Plan: Diet and exercise (3) Hypercholesterolemia: Code(s): E78.00 - Pure hypercholesterolemia, unspecified Plan: Avoid fried foods, chicken skin, eggs, butter margarine, pastries and meat. Be it pork or beef they have a lot of cholesterol LDL goal of less than 130 and triglyceride of less than 150 (4) Anxiety, generalized: Code(s): F41.1 - Generalized anxiety disorder Plan: Continue with present management and discussed about counseling. (5) Hematuria: Code(s): R31.9 - Hematuria, unspecified (6) Skin cancer screening: Code(s): Z12.83 - Encounter for screening for malignant neoplasm of skin Orders: Orders Comprehensive Met. Panel 3 Months E78.00 - Pure hypercholesterolemia, unspecified US renal BI Today R31.9 - Hematuria, unspecified Lipid Panel 3 Months E78.00 - Pure hypercholesterolemia, unspecified Referrals Dermatology Referral Z12.83 - Encounter for screening for malignant neoplasm of skin Medications: New nicotine (polacrilex) 2 mg buccal Q1H 120 ea 0RF Z72.0 - Tobacco use Coding Level of Care Code Est Pt Level 4 (36986) Diagnoses Tobacco use Z72.0 Overweight (BMI 25.0-29.9) E66.3 Hypercholesterolemia E78.00 Anxiety, generalized F41.1 Hematuria R31.9 Skin cancer screening Z12.83
== END 2023-10-16 10:14 | disposition home or self-care (01) ==
PROVIDERS: PCP Internal Medicine; Visit Provider Internal Medicine
DX: E78.00 Pure hypercholesterolemia, unspecified (principal); Z72.0 Tobacco use; E66.3 Overweight; F41.1 Generalized anxiety disorder; R31.9 Hematuria, unspecified; Z12.83 Encounter for screening for malignant neoplasm of skin
CPT/HCPCS: 99214

== ENCOUNTER 2023-12-26 09:20 | Outpatient (REF) | payer OTHER, SELFPAY | END 2023-12-26 09:21 | disposition home or self-care (01) | LOC: HO.US 09:20 | PROVIDERS: PCP Internal Medicine; Visit Provider Internal Medicine | DX: R31.9 Hematuria, unspecified (principal) | CPT/HCPCS: 76775 ==

== ENCOUNTER 2024-04-08 10:04 | Outpatient (AMB) | payer OTHER, SELFPAY ==
[2024-04-08 10:12] VITALS: BP 124/78; PULSE 80; O2SAT 98; BMI 26.3
--- NOTE | 2024-04-08 10:12 | A.OFFPC_ITS ---
Vital Signs 04/08/24 10:12 Height 5 ft 5 in Weight 158 lb BMI 26.3 BP 124/78 Blood Pressure Location Lt brachial Position Sitting Pulse 80 Pulse Source Pulse Oximeter Pulse Oximetry (%) 98 Oxygen Delivery Method Room Air Intake Visit Reasons: ANNUAL Allergies No Known Allergies [No Known Allergies*] Allergy (Verified 04/08/24 10:13) Medication List - Last Reconciled 04/08/24 by Kely Morrell MD hydroxyzine HCl 25 mg PO BEDTIME [THC gummies PO] Tobacco use date assessed: 04/08/24 Dental Screening Dental Screen Date: 04/08/24 Did you have a dental visit in the last 12 months?: Yes Did you have a dental problem in the last 6 months where you did not have access to dental care?: No Was dental information given to patient?: Patient has dentist HPI ANNUAL HPI Details 2 years ago diarrhea and passed out but was dehydrated. The patient is a 49-year-old female presenting with concerns related to hypercholesterolemia and nephrolithiasis. She was last seen in September 2023 and has been previously diagnosed with hypercholesterolemia, which was revealed through blood work that showed very high cholesterol levels. A wellness plan was initiated with goals of reducing LDL cholesterol to less than 130 mg/dL and triglycerides to less than 150 mg/dL. The patient has a familial history of cardiovascular disease, with her father having undergone triple bypass surgery at age 42. She also reports a commitment to dietary changes to address her cholesterol levels, including the consumption of garlic and dandelion root tea. In December, an ultrasound was conducted due to hematuria, revealing bilateral nephrolithiasis with non-obstructive 3 mm calculi. The patient has a history of kidney stones, which were lasered out a couple of years ago under the care of a nearby urologist, but currently presents with new calculi. She has experienced no significant symptoms related to kidney stones, such as pain, since a past incident of dehydration-related syncope a few years ago. For generalized anxiety disorder, the patient currently utilizes hydroxyzine and CBD gummies. She continues to smoke, consuming five to ten cigarettes daily, despite exploring alternatives like nicotine gum and contemplating the use of organic cigarettes. She denies any new surgeries or significant changes in health status since her last visit. - Patient strongly advised to cease smok ing, discussed quit strategies including nicotine patches and gum. - Current on mammography, due for colono scopy. - Blood work completed in September indicat ed normal liver function, electrolytes, renal function, and blood sugar. - Reviewed risks of cardiovascular disea se due to family history, emphasizing dietary changes for cholesterol management. - Patient provided educational support r egarding the risks of smoking. - Discussed potential lung cancer screen ing in the future due to smoking history. - Flu vaccination offered; patient decli paolo. - Advised on vigilance due to flu and [place] VID-19 prevalence, with reminders about associated risks. - Smokes 5-10 cigarettes daily; explorin g reduction strategies. - Previously experienced syncopal episod e due to dehydration. - Engages in dietary changes to improve health, including eating garlic and dandelion root tea. - Denies alcohol intake due to gastroint estinal intolerance. - Respiratory: Denies shortness of breat h. - Cardiovascular: Reports anxiety-relate d chest pressure. - Neurological: Denies dizziness, syncop e, weakness, or numbness. - Gastrointestinal: Denies heartburn or bowel issues. - Genitourinary: Reports nocturia once o r twice nightly. - Psychological: Reports anxiety symptom s. - Hematologic/Lymphatic: No bleeding or bruising issues. - Dermatologic: No skin changes or compl aints. - Labs: September blood work - normal blood count, electrolytes, renal function, blood sugar, liver function. High cholesterol. - Imaging: Kidney ultrasound December - bilateral nephrolithiasis, 3 mm calculi. [facility] Medical History (Updated 04/08/24 @ 10:43 by Kely Morrell MD) Breast cancer screening by mammogram Cervical cancer screening History of kidney stones Irritable bowel Family History Father Heart attack Maternal Grandmother Jaw cancer Breast cancer Paternal Grandmother Oral cancer Maternal Grandfather CVA (cerebral vascular accident) Social History Housing: Apartment Alcohol intake: never Patient Tobacco Use Status: Current everyday Tobacco user Tobacco use type: Cigarette Cigarette Packs Per Day: 0.25 Cigarettes Per Day: 10 Years Smoked: 1/4 pack a day 30 years. , 6 a day (03/2023) e-Cigarette/Vaping Use: Never Used service: No Current occupational status: retired Cognitive needs: No Hearing needs: No Vision needs: No Questionnaire PHQ-9 Over the last 2 weeks, how often have you been bothered by any of the following problems? 1. Little interest or pleasure in doing things: not at all 2. Feeling down, depressed, or hopeless: not at all 3. Trouble falling or staying asleep, or sleeping too much: several days 4. Feeling tired or having little energy: several days 5. Poor appetite or overeating: not at all 6. Feeling bad about yourself - or that you are a failure or have let yourself or your family down: not at all 7. Trouble concentrating on things, such as reading the newspaper or watching television: not at all 8. Moving or speaking so slowly that other people could have noticed. Or the opposite - being so fidgety or restless that you have been moving around a lot more than usual: not at all 9. Thoughts that you would be better off or of hurting yourself in some way: not at all Total score: 2 Depression Screening Interpretation: Positive Depression Screening Done: Yes [id number] - PHQ-9 Billing: Yes Source: Developed by Drs. Darrel Vega, Cindy Jacobs, David Grey and colleagues, with an educational zehra from [employer]. Thrive Questionnaire Date Thrive assessed: 04/08/24 I am a: Patient What is your living situation today?: I have a steady place to live Within the past 12 months, did the food you bought not last and you didn't have the money to get more?: Never true Within the past 12 months, did you worry whether your food would run out before you got money to buy more?: Never true Do you have trouble paying for medicines?: No Do you have trouble getting transportation to medical appointments?: No Do you have trouble paying your heating and electricity bill?: No Do you have trouble taking care of your child, family member or friend?: No Do you have trouble with day-to-day activities such as bathing, preparing meals, shopping, managing finances, etc.?: No Are you currently unemployed and looking for a job?: No Are you interested in more education?: No Please select the resources that you would like help with: None Currently or been in a relationship where the following occur: No concerns reported THRIVE Score: 0 AUDIT C Alcohol Use Questionnaire (AUDIT-C) 1. How often do you have a drink containing alcohol?: Never Total Score: 0 TYE-7 AMB Questionnaire TYE-7 Date TYE - 7 assessed: 04/08/24 Feeling nervous, anxious, or on edge: 1 = Several days Not being able to stop or control worryin = Several days Worrying too much about different things: 1 = Several days Trouble relaxin = Several days Being so restless that it is hard to sit still: 0 = Not at all Becoming easily annoyed or irritable: 0 = Not at all Feeling afraid as if something awful might happen: 0 = Not at all Total TYE-7 score (0-4 normal; 5-9 mild; 10-14 moderate; 15-21 severe): 4 Source: Developed by Drs. Darrel Vega, Cindy Jacobs, David Grey and colleagues, with an educational zehra from [employer]. TYE-7 Assessment Billing TYE-7 Assessment Tool: TYE-7 Assessment 90576 Review of Systems Const Denies poor appetite and Denies weakness Eyes Denies no additional complaints ENT Reports Normal hearing present, Denies dizziness, Denies nasal congestion, Denies tinnitus and Denies sore throat Card Denies chest pain, Denies syncope, Denies rapid heart rate and Denies dyspnea Resp Denies cough and Denies dyspnea GI Denies change in stool character, Reports constipation, Denies diarrhea, Denies nausea and Denies vomiting Denies urinary frequency, Denies difficulty voiding and Denies dysuria Neuro Reports Normal hearing present, Denies confusion, Denies dizziness, Denies syncope and Denies weakness Psych Denies confusion Physical exam (Primary Care) Vital Signs: Last Vital Signs Pulse 80 04/08/24 10:12 BP 124/78 04/08/24 10:12 Pulse Ox 98 04/08/24 10:12 Oxygen Delivery Method Room Air 04/08/24 10:12 BMI result Body Mass Index 26.3 Tobacco/Smoking Status: Tobacco use Status Tobacco use date assessed 04/08/24 04/08/24 10:17 Patient Tobacco Use Status Current everyday Tobacco 04/08/24 10:17 Tobacco use type Cigarette 04/08/24 10:17 e-Cigarette/Vaping Use Never Used 04/08/24 10:17 PHQ-9: PHQ-9 Score PHQ-9: Total score 2 04/08/24 10:17 Depression Screening Interpretation: Positive Thrive Assessment: Date of Thrive Assessment Date Thrive assessed 04/08/24 04/08/24 10:17 Currently or been in a relationship where the following occur: No concerns reported Const General: No confusion Orientation/consciousness: No confusion HENMT Head: Yes normocephalic Ears: external ears normal and TM's normal bilaterally Face and sinus: Yes normal facial exam Mouth: moist mucous membranes Throat: Yes tonsils normal Eyes Conjunctivae: conjunctivae normal Pupils: Equal, round and reactive pupils present and Pupil accommodation reflex normal Direct Ophthalmoscopy: normal light reflex Neck Neck: No lymphadenopathy Thyroid: Thyroid normal Chest Chest palpation & inspection: normal inspection of the chest Resp Effort & Inspection: normal respiratory effort and no audible wheezes Auscultation: clear to auscultation bilaterally, no crackles, no wheezes and lung sounds not diminished Cardio Rate: regular rate Rhythm: regular rhythm Peripheral pulses: radial pulses present and dorsalis pedis present GI Palpation (GI): no masses Auscultation: normal bowel sounds and normoactive bowel sounds Rectal Exam - Female: deferred Skin General skin exam: no rashes or lesions noted Rashes: no rashes Neuro General: No confusion Cranial nerves: Yes Equal, round and reactive pupils present and Yes Normal hearing present Cognition (Neuro): normal cognition Gait exam (Neuro): Normal gait present Motor exam (neuro): 5/5 motor strength present throughout Deep tendon reflexes (DTR's): Right brachioradialis reflex intensity grade: 2+, Left brachioradialis reflex intensity grade: 2+, Right patellar reflex intensity grade: 2+ and Left patellar reflex intensity grade: 2+ Extrem General: No edema Coding Level of Care Code Est Pt Prev Care 40-64y(54986) Diagnoses Annual physical exam Z00.00 Tobacco use Z72.0 Anxiety, generalized F41.1 Hypercholesterolemia E78.00 Bilateral renal stones N20.0 Thyroid enlargement E04.9 Additional Codes TYE-7 Assessment Billing - TYE-7 Assessment Tool: TYE-7 Assessment 48363 ([id number]) PHQ-9 - 31047 - PHQ-9 Billing: Yes ([id number]) Assessment & Plan Assessment & Plan (1) Annual physical exam: Code(s): Z00.00 - Encounter for general adult medical examination without abnormal findings Category: Medical Plan: Patient is advised to eat healthy, keep well hydrated, keep active and have adequate sleep. (2) Tobacco use: Code(s): Z72.0 - Tobacco use Category: Social Hx Plan: Patient is strongly advised to stop smoking (3) Anxiety, generalized: Code(s): F41.1 - Generalized anxiety disorder Category: Medical Plan: Discussed about counseling and therapy. (4) Hypercholesterolemia: Code(s): E78.00 - Pure hypercholesterolemia, unspecified Category: Medical Plan: Avoid fried foods, chicken skin, eggs, butter margarine, pastries and meat. Be it pork or beef they have a lot of cholesterol LDL goal of less than 130 and triglyceride of less than 150. Repeat blood work (5) Bilateral renal stones: Code(s): N20.0 - Calculus of kidney Category: Medical Plan: Increase oral fluids (6) Thyroid enlargement: Code(s): E04.9 - Nontoxic goiter, unspecified Category: Medical Plan - Continue dietary interventions for hypercholesterolemia; repeat lipid profile planned. - Discussed smoking cessation plan including nicotine replacement. - Increase oral hydration to facilitate passage of kidney stones. - Ultrasound of the thyroid recommended for completeness due to family history. - Advised patient to continue with anxiety management regimen and consider counseling options. - Discussed potential for coronary interventions given family history if conservative measures fail. I discussed with the patient the importance of reducing her cholesterol levels due to her elevated risk of cardiovascular diseases, given her family history. We reviewed dietary strategies and emphasized the importance of continued lifestyle modifications. Given her history of kidney stones, I reiterated the need for increased hydration to facilitate stone passage. We considered her smoking cessation strategy, focusing on nicotine replacement therapy as well as her use of organic cigarettes to transition off conventional tobacco. The risks associated with smoking, such as increased risk for cardiovascular events and potential implications on lung health, were discussed. I emphasized again the significance of follow-up blood work to evaluate her cholesterol management. We declined routine vaccinations and discussed the importance of staying vigilant about respiratory illnesses during flu and COVID-19 seasons. - Continue with dietary changes to improve cholesterol levels. - Increase fluid intake to help flush kidney stones. - Follow up with blood work as advised to monitor cholesterol levels. - Use nicotine replacement therapies consistently as discussed to aid in smoking cessation. - Be cautious of flu and respiratory illnesses; practice preventive measures. - Schedule an ultrasound for thyroid assessment. - Consider counseling options to manage anxiety symptoms. - Contact the office if experiencing any new or worsening symptoms, particularly related to chest pain or respiratory distress. Orders: Orders Lipid Panel Today E78.00 - Pure hypercholesterolemia, unspecified Thyroid Stimulating Hormone Today E78.00 - Pure hypercholesterolemia, unspecified US thyroid Today E04.9 - Nontoxic goiter, unspecified Comprehensive Met. Panel Today E78.00 - Pure hypercholesterolemia, unspecified Complete Blood Count Auto Diff Today E78.00 - Pure hypercholesterolemia, unspecified Free T4 (Free Thyroxine) Today E78.00 - Pure hypercholesterolemia, unspecified Vitamin B12 and Folate Today E78.00 - Pure hypercholesterolemia, unspecified Vitamin D 25-OH Total Today E78.00 - Pure hypercholesterolemia, unspecified
--- OUTSIDE RECORDS SUMMARY | 2024-04-08 10:55 | XMS_ITS | Data Portability ---
Author Organization [facility], Main Office Address [address] [place] [id number] Care Team Providers Care Corn Husk Baler Name Role Phone ESAUROMAN ALLEN Primary Care Provider KATHRIN SCHWAB Road Design Draftsperson ANCA GILLESPIE Manager Intensive Care Assessment Encounter Date Assessment Date Assessment LastModified by Organization Details LastModified Time 11/04/2015 11/04/2015 recent [facility] er/admission d/t vomiting / abd pain -- better now pmadden Not available 11/04/2015 11:44:22 Plan of Treatment Reminders Order Date Submit Date Provider Last Modified By Organization Details Last Modified Time Details Appointments None record ed. Lab CMP, serum or plasma 2016 017 abigby [facility], [address] [facility] [place], [place], [address], 8 13:38:18 lipid panel, serum 2016 017 abigby [facility], [address] , [place], [address], 8 13:38:18 CBC w/ auto diff 2016 017 abigby [facility], [address], [place], [address], 8 13:38:18 Referral gyneco logist referr al 2016 017 zoey Gillespie MD, [address] [place], [address], 7 09:24:34 Procedures None record ed. Surgeries None record ed. Imaging MAMMO, screen ing, bilate ral - Perfor m Diagno stic Mammog elvin and Breast Ultras ound if needed / Perfor m Ultras ound Guided Aspira tion and/or Breast Biopsy if warran carmen 2016 [facility] Orders, [address], [place], [address], 7 09:24:28 Medication Orders alpraz olam 0.5 mg tablet 2016 017 [email or web address] Not available 7 11:23:33 Effexo r XR 37.5 mg capsul e,exte nded releas e 2015 016 [id number], [address] [place], [place], [phone], 7 11:42:46 alpraz olam 0.5 mg tablet 2015 016 [email or web address] Not available 7 11:23:33 Reglan 5 mg tablet 2015 016 [id number], [address] [place], [place], [phone], 7 11:44:23 alpraz olam 0.5 mg tablet 2015 016 [email or web address] Not available 7 11:23:33 Patient TargetsNo targets recorded. Patient Instructions Encounter Date Encounter Id Patient Instructions Last Modified By Organization Details Last Modified Time 11/04/2015 [id number] abdominal pain: care instructions Not available 02/05/2016 04:31:44 nausea and vomiting: care instructions 7 Not available 02/05/2016 04:31:44 anxiety disorder: care instructions 7 Not available 02/05/2016 04:31:35 I have reviewed the note and agree with the assessment and plan of care. [email or web address] Not available 11/04/2015 12:21:51 12/15/2015 [id number] I have reviewed the note and agree with the assessment and plan of care. [email or web address] Not available 12/16/2015 17:23:00 01/05/2016 [id number] I have reviewed the note and agree with the assessment and plan of care. [email or web address] Not available 01/05/2016 17:46:27 02/24/2016 [id number] Quitting Tobacco: Care Instructions [email or web address] Not available 02/24/2016 12:27:48 I have reviewed the note and agree with the assessment and plan of care. [email or web address] Not available 02/24/2016 16:18:21 08/16/2016 [id number] Cervical Cancer Screening [email or web address] Not available 08/16/2016 12:33:08 I have reviewed the note and agree with the assessment and plan of care. [email or web address] Not available 08/16/2016 13:17:50 Reason for Referral Manager Intensive Care Referral for Sc reening for malignant neoplasm of cervix Referring Physician: Ady Mak, Internal Medicine, Encounter Date: 08/16/2016 Problems Name Problem SNOMED Code Status Onset Date Resolution Date Notes Provider Name and Address Organization Details Recorded Time Acute pharyngi tis 512729109 Completed 200709/25/2013 DATE: 09/20/19 08; RECORDED 03/31/19 09 1:37PM BY DEBORA REYES ON/ADDEN DUM Not Available [facility] 4 12:26:29 Anxiety state 761983433 Completed 201109/25/2013 RECORDED 11/13/19 12 2:15PM BY ALLYSON COVARRUBIAS MA, ANNOTATI ON/ADDEN DUM Not Available [facility] 4 12:26:29 Screenin g for malignan t neoplasm of cervix Completed 201209/25/2013 RECORDED 06/01/19 13 1:59PM BY DEBORA TOURE ON/ADDEN DUM Not Available [facility] 4 12:26:29 Neck pain 63344486 Completed 201209/25/2013 IMPRESSI ON: REASSURA NCE MUSCLE SPASM RELATED. SHE HAS FORWARD FACING POSTURE AND WOULD BENEFIT FROM PHYSICAL THERAPY. ; RECORDED 06/01/19 13 1:59PM BY KEVIN RUDOLPH I, DEMARATI ON/ADDEN DUM Not Available [facility] 4 12:26:29 Dysuria 98345884 Completed 200709/25/2013 RESOLVED DATE: 07/23/19 08; RECORDED 07/23/19 08 3:57PM BY ROMAN ROSE MD, DEMARATI ON/ADDEN DUM Not Available [facility] 4 12:26:29 Nonvenom ous insect bite of scalp with infectio n 44215444 Completed 200709/25/2013 RESOLVED DATE: 07/23/19 08; RECORDED 07/23/19 08 3:58PM BY ROMAN ROSE MD, ANNOTATI ON/ADDEN DUM Not Available [facility] 4 12:26:29 Administ ration of bacteria l and viral vaccine Completed 200809/25/2013 RECORDED 06/11/19 09 1:18PM BY ALLYSON COVARRUBIAS MA, OFFICE VISIT Not Available [facility] 4 12:26:29 Peritons illar abscess 60454030 Completed 200709/25/2013 RESOLVED DATE: 07/23/19 08; RECORDED 07/23/19 08 3:57PM BY ROMAN ROSE MD, ANNOTATI ON/ADDEN DUM Not Available [facility] 4 12:26:29 Influenz a vaccine needed 08122248660 06 Completed 201109/25/2013 RECORDED 11/13/19 12 2:22PM BY ALLYSON COVARRUBIAS MA, OFFICE VISIT Not Available [facility] 4 12:26:29 Adult health examinat ion Completed 201109/25/2013 RECORDED 11/13/19 12 2:15PM BY ALLYSON COVARRUBIAS MA, DEBORA ON/ADDEN DUM Not Available [facility] 4 12:26:29 Disorder of thyroid gland 30833053 Completed 201109/25/2013 RECORDED 11/13/19 12 2:16PM BY ALLYSON COVARRUBIAS MA, DEMARATI ON/ADDEN DUM Not Available [facility] 4 12:26:30 Acute pharyngi tis 649675828 Completed 200709/26/2013 DATE: 09/20/19 08; RECORDED 03/31/19 09 1:37PM BY DEMAR REYESATI ON/ADDEN DUM Not Available [facility] 4 03:38:37 Anxiety state 145073151 Completed 201109/26/2013 RECORDED 11/13/19 12 2:15PM BY ALLYSON COVARRUBIAS MA, DEMARATI ON/ADDEN DUM Not Available [facility] 4 03:38:37 Screenin g for malignan t neoplasm of cervix Completed 201209/26/2013 RECORDED 06/01/19 13 1:59PM BY DEBORA TOURE ON/ADDEN DUM Not Available [facility] 4 03:38:37 Neck pain 59521185 Completed 201209/26/2013 IMPRESSI ON: REASSURA NCE MUSCLE SPASM RELATED. SHE HAS FORWARD FACING POSTURE AND WOULD BENEFIT FROM PHYSICAL THERAPY. ; RECORDED 06/01/19 13 1:59PM BY DEBORA TOURE ON/ADDEN DUM Not Available [facility] 4 03:38:37 Dysuria 45372937 Completed 200709/26/2013 RESOLVED DATE: 07/23/19 08; RECORDED 07/23/19 08 3:57PM BY ROMAN ROSE MD, DEBORA ON/ADDEN DUM Not Available [facility] 4 03:38:37 Nonvenom ous insect bite of scalp with infectio n 46258633 Completed 200709/26/2013 RESOLVED DATE: 07/23/19 08; RECORDED 07/23/19 08 3:58PM BY ROMAN ROSE MD, DEMARATI ON/ADDEN DUM Not Available [facility] 4 03:38:37 Administ ration of bacteria l and viral vaccine Completed 200809/26/2013 RECORDED 06/11/19 09 1:18PM BY ALLYSON COVARRUBIAS MA, OFFICE VISIT Not Available [facility] 4 03:38:37 Peritons illar abscess 15057984 Completed 200709/26/2013 RESOLVED DATE: 07/23/19 08; RECORDED 07/23/19 08 3:57PM BY ROMAN ROSE MD, ANNOTATI ON/ADDEN DUM Not Available [facility] 4 03:38:37 Influenz a vaccine needed 85797871624 06 Completed 201109/26/2013 RECORDED 11/13/19 12 2:22PM BY ALLYSON COVARRUBIAS MA, OFFICE VISIT Not Available [facility] 4 03:38:37 Adult health examinat ion Completed 201109/26/2013 RECORDED 11/13/19 12 2:15PM BY ALLYSON COVARRUBIAS MA, ANNOTATI ON/ADDEN DUM Not Available [facility] 4 03:38:37 Disorder of thyroid gland 33038955 Completed 201109/26/2013 RECORDED 11/13/19 12 2:16PM BY ALLYSON COVARRUBIAS MA, ANNOTATI ON/ADDEN DUM Not Available [facility] 4 03:38:37 Divertic ulitis 778668214 Completed 201408/16/2016 Ady Mak PA-C [address] [facility] [address], [place], [address] , [facility] 7 12:09:20 Divertic ular disease 459964185 Completed 02/24/[address] [facility] 7 11:39:59 Irritabl e bowel syndrome 82614848 Active Trisha higuera [facility] 6 14:20:17 Acute pharyngi tis 665764724 Completed 200709/02/2013 DATE: 09/20/19 08; RECORDED 03/31/19 09 1:37PM BY DEMAR REYESATI ON/ADDEN DUM Not Available [facility] 4 14:02:58 Anxiety state 037399307 Completed 201109/02/2013 RECORDED 11/13/19 12 2:15PM BY ALLYSON COVARRUBIAS MA, ANNOTATI ON/ADDEN DUM Not Available [facility] 4 14:02:59 Screenin g for malignan t neoplasm of cervix Completed 201209/02/2013 RECORDED 06/01/19 13 1:59PM BY DEMAR TOUREATI ON/ADDEN DUM Not Available [facility] 4 14:02:59 Neck pain 12067872 Completed 201209/02/2013 IMPRESSI ON: REASSURA NCE MUSCLE SPASM RELATED. SHE HAS FORWARD FACING POSTURE AND WOULD BENEFIT FROM PHYSICAL THERAPY. ; RECORDED 06/01/19 13 1:59PM BY DEBORA TOURE ON/ADDEN DUM Not Available [facility] 4 14:02:59 Dysuria 26984271 Completed 200709/02/2013 RESOLVED DATE: 07/23/19 08; RECORDED 07/23/19 08 3:57PM BY ROMAN ROSE MD, DEMARATI ON/ADDEN DUM Not Available [facility] 4 14:02:59 Panic disorder without agorapho herber 85211754 Active 2012 IMPRESSI ON: WE WILL STAY AWAY FROM [facility] FOR NOW GUILHERME SHORT-AC TING BENZOS SINTIA Gonzalez [facility] 7 11:39:55 Nonvenom ous insect bite of scalp with infectio n 66215691 Completed 200709/02/2013 RESOLVED DATE: 07/23/19 08; RECORDED 07/23/19 08 3:58PM BY ROMAN ROSE MD, DEMARATI ON/ADDEN DUM Not Available [facility] 4 14:02:59 Administ ration of bacteria l and viral vaccine Completed 200809/02/2013 RECORDED 06/11/19 09 1:18PM BY ALLYSON COVARRUBIAS MA, OFFICE VISIT Not Available [facility] 4 14:02:59 Peritons illar abscess 65868350 Completed 200709/02/2013 RESOLVED DATE: 07/23/19 08; RECORDED 07/23/19 08 3:57PM BY ROMAN ROSE MD, ANNOTATI ON/ADDEN DUM Not Available [facility] 4 14:02:59 Influenz a vaccine needed 23580488903 06 Completed 201109/02/2013 RECORDED 11/13/19 12 2:22PM BY ALLYSON COVARRUBIAS MA, OFFICE VISIT Not Available [facility] 4 14:02:59 Adult health examinat ion Completed 201109/02/2013 RECORDED 11/13/19 12 2:16PM BY ALLYSON COVARRUBIAS MA, ANNOTATI ON/ADDEN DUM Not Available [facility] 4 14:02:59 Disorder of thyroid gland 36841203 Completed 201109/02/2013 RECORDED 11/13/19 12 2:16PM BY ALLYSON COVARRUBIAS MA, ANNOTATI ON/ADDEN DUM Not Available [facility] 4 14:02:59 Tobacco dependen ce syndrome 30231929 Active 2012 Allyson mcgovern MA null, [facility] 7 11:39:51 Problem Notes None recorded. Procedures Surgical History Date Name Laterality Status Provider Name and Address Organization Details Recorded Time 03/15/19 16 Date of Last Colonoscopy completed Myrna Gaxiola [facility] 03/15/2015 10:37:14 03/15/19 16 Colonoscopy completed Myrna Gaxiola [facility] 03/15/2015 10:37:34 03/15/19 16 EGD completed Myrna Gaxiola [facility] 03/15/2015 10:37:51 Mammogram screening completed Allyson Pilar-Matto s, [place] [facility] 08/16/2016 11:25:14 Imaging Results None recorded. Procedure Notes None recorded. Medical Equipment None Reported. Allergies Allergen ID Allergen Name Allergen Category Reaction Reaction Severity Criticality Documentation Date Start Date Code Code System Note Provider Name and Address Organization Details Recorded Time 89060 venlafaxi ne medicatio n other Not available Not available 02/24/2016 32214 RxNorm tremo rs; shaki ng SINTIA Swift, [facility] 7 11:43:11 Medications Name Sig Start Date Stop Date Status Note LastModified by Organization Details LastModified Time venlafaxi ne ER 37.5 mg capsule,e xtended release 24 hr Take 1 capsule every day by oral route for 30 days. 02/23 completed Not Available Not Available Not Available clindamyc in HCl 300 mg capsule TID 2007 active RECORDED 06/05/19 08 3:28PM BY ROMAN ROSE MD, ANNOTATI ON/ADDEN DUM; Not Available Not Available Not Available trazodone 50 mg tablet 08/16 completed Not Available Not Available Not Available citalopra m 10 mg tablet DAILY 2012 active RECORDED 06/01/19 13 2:27PM BY ROMAN ROSE MD, OFFICE VISIT; Not Available Not Available Not Available meloxicam 15 mg tablet DAILY 2011 active RECORDED 06/01/19 13 2:00PM BY KEVIN RUDOLPH I, OFFICE VISIT; Not Available Not Available Not Available peppermin t oil Take by miscell. route as needed. 02/23 completed Not Available Not Available Not Available ondansetr on HCl 4 mg tablet Take 1 tablet twice a day by oral route for 10 days. 01/04 completed Not Available Not Available Not Available prednison e 20 mg tablet QD 01/20 completed RECORDED 03/12/19 08 3:09PM BY TESS TORRES, MEDICATI ON AUTO-CHRIS CTIVATIO N; Not Available Not Available Not Available clonazepa m 0.5 mg tablet Take 1 tablet 3 times a day by oral route as needed for 30 days. active Not Available Not Available No t Available Wellbutri n SR 150 mg tablet, 12 hr sustained -release TWO TIMES DAILY 07/27 completed RECORDED 07/28/19 10 1:23PM BY SINTIA SUTHERLAND, OFFICE VISIT; Not Available Not Available Not Available penicilli n V potassium 500 mg tablet THREE TIMES A DAY 09/29 completed RECORDED 02/11/20 08 1:16PM BY TESS TORRES, MEDICATI ON AUTO-CHRIS CTIVATIO N; Not Available Not Available Not Available metronida zole 500 mg tablet active Not Available Not Available No t Available alprazola m 0.5 mg tablet Take 1 tablet twice a day by oral route as needed for 30 days. 08/16 completed Not Available Not Available Not Available metoclopr amide 5 mg tablet Take 1 tablet as needed by oral route for 10 days. 2016 active REGLAN Not Available Not Available Not Avai lable Bactroban 2 % topical ointment BID TO LESIONS 01/25 completed RECORDED 03/12/19 08 3:09PM BY TESS TORRES, MEDICATI ON AUTO-CHRIS CTIVATIO N; Not Available Not Available Not Available cephalexi n 500 mg capsule TID 2007 active RECORDED 06/05/19 08 3:28PM BY ROMAN ROSE MD, ANNOTATI ON/RONALD DEAN; Not Available Not Available Not Available venlafaxi ne 37.5 mg tablet active Not Available Not Available No t Available hyoscyami ne sulfate 0.125 mg tablet Take 1 tablet 3 times a day by oral route as needed for 10 days. 12/14 completed Not Available Not Available Not Available buspirone 10 mg tablet 08/16 completed Not Available Not Available Not Available clotrimaz ole-betam ethasone 1 %-0.05 % topical cream active Not Available Not Available Not Available fluoxetin e 10 mg capsule active Not Available Not Available Not Available clindamyc in 2 % vaginal cream active Not Available Not Available Not Available alprazola m 2 mg tablet Take 1 tablet as needed for anxiety with a max of 4 tablets per week 12/14 completed Not Available Not Available Not Available gabapenti n 100 mg capsule 12/14 completed Not Available Not Available Not Available Prometheg an 25 mg rectal supposito ry Insert 1 supposit ory every day by rectal route as needed for 7 days. 12/14 completed Not Available Not Available Not Available levofloxa yosi 750 mg tablet active Not Available Not Available No t Available dicyclomi ne 10 mg capsule active Not Available Not Available Not Available hydroxyzi ne pamoate 25 mg capsule active Not Available Not Available Not Available nitrofura ntoin monohydra te/macroc rystals 100 mg capsule active Not Available Not Available Not Available duloxetin e 30 mg capsule,d elayed release 08/16 completed Not Available Not Available Not Available MoviPrep 100 gram-7.5 gram-2.69 1 gram oral powder packet active Not Available Not Available Not Available peppermin t oil DR - ER 90 mg capsule,d elayed,ex tended release Take 1 capsule as needed by oral route. active for upset stomach Not Available Not Available Not Available Vitals Date Recorded Body height Body weight Body mass index (BMI) Heart rate Oxygen saturation Oxygen saturation in Arterial blood by Pulse oximetry Body temperature Systolic blood pressure Diastolic blood pressure Provider Name and Address Organization Details Last Updated DateTime 6 163.83 cm 25102.6 g 22.1 kg/m2 82 /min 97 % 97 % 97.5 [degF] 118 mm[Hg] 68 mm[Hg] Kevin Fuentes [facility] 6 14:32:34 Date Recorded Body height Body temperature Oxygen saturation Oxygen saturation in Arterial blood by Pulse oximetry Heart rate Body weight Body mass index (BMI) Systolic blood pressure Diastolic blood pressure Provider Name and Address Organization Details Last Updated DateTime 7 163.83 cm 97.9 [degF] 98 % 98 % 78 /min 97645.7 9 g 22.5 kg/m2 122 mm[Hg] 66 mm[Hg] Al[facility]son [facility]enson [facility] 7 11:47:39 Date Recorded Body height Oxygen saturation Oxygen saturation in Arterial blood by Pulse oximetry Heart rate Body temperature Body mass index (BMI) Body weight Systolic blood pressure Diastolic blood pressure Provider Name and Address Organization Details Last Updated DateTime 7 163.83 cm 97 % 97 % 80 /min 98.1 [degF] 22.8 kg/m2 30241.9 7 g 114 mm[Hg] 60 mm[Hg] Allyson benson MA [facility] 7 11:29:22 Date Recorded Body height Body weight Body mass index (BMI) Heart rate Oxygen saturation Oxygen saturation in Arterial blood by Pulse oximetry Body temperature Systolic blood pressure Diastolic blood pressure Provider Name and Address Organization Details Last Updated DateTime 6 163.83 cm 09163.0 1 g 22 kg/m2 84 /min 98 % 98 % 98 [degF] 101 mm[Hg] 72 mm[Hg] Kevin Fuentes [facility] 6 11:08:49 Date Recorded Body height Body weight Body mass index (BMI) Body temperature Oxygen saturation Oxygen saturation in Arterial blood by Pulse oximetry Heart rate Systolic blood pressure Diastolic blood pressure Provider Name and Address Organization Details Last Updated DateTime 6 163.83 cm 31851.3 9 g 21.6 kg/m2 97.9 [degF] 97 % 97 % 93 /min 106 mm[Hg] 68 mm[Hg] Titi Barlow [facility] 6 15:20:39 Social History Question Answer Notes LastModified by Organizat ion Details LastModified Time Tobacco Smoking Status Current Every Day Smoker Not Available [facility] 12/23/2019 03:36:34 Do You Have An Advance Directive? No [id number] Information not available 12/23/2019 What Is Your Level Of Alcohol Consumption? None [id number] Information not available 12/23/2019 Is Blood Transfusion Acceptable In An Emergency? Yes [id number] Information not available 12/23/2019 What Is Your Level Of Caffeine Consumption? None [id number] Information not available 12/23/2019 How Much Tobacco Do You Chew? None [id number] Information not available 12/23/2019 Are You Currently Employed? Yes [id number] Information not available 12/23/2019 What Type Of Diet Are You Following? REGULAR Lots Of Veggies [id number] Information not available 12/23/2019 Which Illicit Or Recreational Drugs Have You Used? 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 Alone bassem Information not available 08/26/2014 Do You Take Precautions To Prevent Distracted Driving? Yes Information not available 02/24/2016 How Often Do You Need To Have Someone Help You When You Read Instructions, Pamphlets, Or Other Written Material From Your Doctor Or Pharmacy? Never Information not available 02/24/2016 Have You Served In The ? No Information not available 02/24/2016 How Many Children Do You Have? 0 [id number] Information not available 12/23/2019 Do You Use Protection During Sex? No [id number] Information not available 12/23/2019 Seat Belts Used Routinely Yes Information not available 02/24/2016 Are You Sexually Active? Yes [id number] Information not available 12/23/2019 Smoke Alarm In Home Yes Information not available 08/16/2016 At What Age Did You Start Smoking Tobacco? 16 [id number] Information not available 12/23/2019 Are You Passively Exposed To Smoke? Yes Information not available 02/24/2016 How Much Tobacco Do You Smoke? 0.25 PPD 3-4 Cigarettes Per Day [id number] Information not available 12/23/2019 Do You Use Sunscreen Routinely? No [id number] Information not available 12/23/2019 How Many Years Have You Smoked Tobacco? 25 [id number] Information not available 12/23/2019 Sex: Unknown Functional Status Question Answer Note LastModified by Organization D etails LastModified Time Are you able to care for yourself? Yes [id number] Information not available 12/23/2019 What is your exercise level? Moderate [id number] Information not available 12/23/2019 Mental Status None recorded. Family History Relationship Description Onset Age of this Age Resolved Age Notes LastModified by Organization Details LastModified Time Father No current problems or disability [email or web address] s Not available 02/24/2016 11:40:52 Father Coronary arterioscler osis 42 chf - ef ~ 20% at age 63, had triple bypass at age 42 [email or web address] Not available 08/16/2016 12:20:17 Mother No current problems or disability sal becerra Not available 02/24/2016 11:40:52 Medical History No medical history recorded. Gynecological History Statement/Question Response Date of Last Colonoscopy 03/15/2015 Obstetrics History GPAL:G 0 P 0 0 0 0 Immunizations Vaccine Type Date Status Note Provider Nam e and Address Organization Details Recorded Time Tdap 06/10/2008 completed Not Available [facility] 09/02/2013 13:27:43 Past Encounters Encounter ID Performer Location Encounter Start Date Encounter Closed Date Diagnosis/Indication Diagnosis SNOMED-CT Code Diagnosis ICD10 Code Diagnosis Note [id number] [facility] [address] [facility] [place] [id number] 06/20/2006 00:00:00 [id number] auto[facility]Comm erce [address] [facility] [place] [id number] 08/29/2006 00:00:00 [id number] autoEComm erce [address] [facility] [place] [id number] 12/24/2006 00:00:00 [id number] autoEComm erce [address] [facility] [place] [id number] 01/15/2007 00:00:00 [id number] auto[facility]Comm erce [address] [facility] [place] [id number] 03/12/2007 00:00:00 [id number] auto[facility]Comm erce [address] [facility] [place] [id number] 06/05/2007 00:00:00 [id number] autoEComm erce [address] [facility] [place] [id number] 06/26/2007 00:00:00 [id number] autoEComm erce [address] [facility] [place] [id number] 07/23/2007 00:00:00 [id number] autoEComm erce [address] [facility] [place] [id number] 09/20/2007 00:00:00 [id number] auto[facility]Comm erce [address] [facility] [place] [id number] 03/31/2008 00:00:00 [id number] autoEComm erce [address] [facility] [address] [place] [id number] 04/17/2008 00:00:00 [id number] autoEComm erce [address] [facility] [place] [address] 06/10/2008 00:00:00 [id number] autoEComm erce [address] [facility] [place] [id number] 02/22/2009 00:00:00 [id number] autoEComm erce [address] [facility] [place] [id number] 07/27/2009 00:00:00 [id number] autoEComm erce [address] [facility] [place] [address] 03/10/2010 00:00:00 [id number] [facility] [address] [facility] [facility],[address] [place] [address] 03/28/2011 00:00:00 [id number] autoEComm erce [address] [facility],[address] [place] [address] 06/23/2011 00:00:00 [id number] autoEComm erce [address] [facility],[address] [place] [address] 08/11/2011 00:00:00 [id number] autoEComm erce [address] [facility],[address] [place] [address] 11/13/2011 00:00:00 [id number] autoEComm erce [address] [facility],[address] [place] [address] 05/31/2012 00:00:00 [id number] Main Office [address] [facility] [address] [place] [address] 08/26/2014 12:44:42 08/26/2014 13:24:42 Panic disorder without agoraphobia [id number] she will continue with the Xanax prn for now and she is intending to call Dr Wills, a psychiatri st, for an appointmen t. I also advised her to start the fluoxetine which was given to her by Dr Gillespie for PMD which may also help with her depression and anxiety. OOW for today. [id number] CONRADO Perera Main Office [address] [facility] [address] [address] [place] [address] 10/22/2014 16:23:12 10/22/2014 17:05:17 Diverticular disease [id number] Continue flagyl and levaquin until finished, lots of fluids, continue diet as directed. [id number] Main Office [address] [facility] [address] [place] [address] 11/10/2014 09:52:34 11/10/2014 10:50:25 Panic disorder without agoraphobia 07235231 Patient feels lorazepam works better for her symptoms, She does have the number to a few psychiatri sts but has not started the process of calling yet due to being admitted etc. Discussed with PCP, medication s will not be changed, she needs to see a psychiatri st as she has tried citalopram for a short time and it did not work out. I recommend she start calling for an appointmen t as it takes time to get in with psychiatry . Paperwork must be filled out by a physician, this was also discussed with PCP and form was given to Medical records. Diverticular disease [id number] Continue lots of fluids, continue diet as directed. Follow-up with GI as scheduled on 11/26/14. 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 Form filled out. [id number] Roman Flores MD Main Office [address] [facility] [address] [place] [address] 12/16/2014 15:09:43 12/16/2014 16:37:18 Panic disorder without agoraphobia 62793285 F41.0 she will continue with the Xanax prn for now. We will start her on a low dose of effexor at 37.5 mg to get her body used to taking something. She understand s that this will not help with her symptoms but that it also should not cause any adverse effects because the dose is so low. We will also refer her to [facility] counseling to assist with her panic attacks. [id number] Roman Flores MD Main Office [address] [address] [place] [address] 01/27/2015 15:21:31 01/27/2015 15:56:47 Panic disorder without agoraphobia 86938976 F41.0 she will continue with the Xanax prn for now. He states that she will p/u the effexor and start it now. It is a low dose and she understand s that we will have to go up on the dose in order for her to receive any benefit from it. She will continue with counseling and will return here in 1 month for evaluation . [id number] Roman Flores MD Main Office [address] [place] [address] [place] [address] 03/03/2015 09:50:35 03/03/2015 10:34:52 Panic disorder without agoraphobia 82999765 F41.0 She continues to have symptoms and has continued with the meds and with counseling . 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 I told her that this was not appropriat e and she needs to return and work out an acceptable plan. I also called Dr Schwab who is out until tomorrow to discuss the appropriat eness of light duty while awaiting her colonoscop y. Irritable bowel syndrome 92911737 K58.9 she is scheduled for a colonoscop y with Dr Schwab. [id number] Roman Flores MD Main Office [address] [address] [place] [address] 03/16/2015 13:59:49 03/16/2015 15:17:33 Irritable bowel syndrome 28540053 K58.9 She had a normal EGD and colonoscop y and continues to follow with Dr Schwab. Many of her symptoms are related to her anxiety/pa tyson d/o. Panic diso rder without agoraphobia 81219106 F41.0 Her symptoms have not been improving lately and she understand s that they are exacerbate d by her work. She will restart the effexor and will continue to use the benzo on an as needed basis. She is followed by Leydi lan from [facility] and will hopefully be scheduled with a psychiatri thru her. [id number] Roman Flores MD Main Office [address] [address] [place] [address] 06/23/2015 09:54:23 06/23/2015 11:27:58 Panic disorder without agoraphobia 43889604 F41.0 25 minute office visit with greater than 50% of the visit face-to-fa ce with the patient and/or family providing counseling and/or coordinati on of care. Irritable bowel syndrome 16238153 K58.9 [id number] Roman Flores MD Main Office [address] [address] [place] [address] 08/02/2015 10:25:16 08/02/2015 11:32:42 Irritable bowel syndrome 59574281 K58.9 Is scheduled to see GI later today - h/o NL egd/colon x mild sigmoid colitis - ? consider another trial of dicyclomin e vs. other. F/u c psychiatri st on 08.03 - ? if can try another preventive /proactive med? Panic diso rder without agoraphobia 12451123 F41.0 25 minute office visit with greater than 50% of the visit face-to-fa ce with the patient and/or family providing counseling and/or coordinati on of care. [id number] Trisha Mccartney Main Office [address] [address] [place] [address] 08/30/2015 10:50:25 08/30/2015 12:09:25 Panic disorder without agoraphobia 58256157 F41.0 15 minute office visit with greater than 50% of the visit face-to-fa ce with the patient and/or family providing counseling and/or coordinati on of care. Irritable bowel syndrome 57037966 K58.9 better c lowered work schedule (down to 3 days/week) . will fwd note to GI - ? cancel capsule endoscopy since pt has gained wt (4 lbs in past month) [id number] Roman Florse MD Main Office [address] [place] [address] 11/04/2015 10:52:55 11/04/2015 11:56:44 Irritable bowel syndrome 60180294 K58.9 25 minute office visit with greater than 50% of the visit face-to-fa ce with the patient and/or family providing counseling and/or coordinati on of care. Nausea 307180319 R11.0 Abdominal pain 70909017 R10.9 stable curr, will f/u c GI in a few weeks Anxiety 95113608 F41.9 Panic diso rder without agoraphobia 35256021 F41.0 15 minute office visit with greater than 50% of the visit face-to-fa ce with the patient and/or family providing counseling and/or coordinati on of care. [id number] Roman Flores MD Main Office [address] [facility] [place] [address] 12/15/2015 15:04:26 12/15/2015 16:03:43 Panic disorder without agoraphobia 64508693 F41.0 25 minute office visit with greater than 50% of the visit face-to-fa ce with the patient and/or family providing counseling and/or coordinati on of care. Mixed anxi ety and depressive disorder 408667255 F41.8 will give trial of another med - ? tried effexor in past, willing to try again since pt cannot recall if had SE to this - showed her in epocrates that this med is intended for panic - see if will help pt while we bridge her to get back in to see [facility] psychiatr st - [facility]. to see Mame on 02.01.16 [id number] Trisha Mccartney Main Office [address] [facility] [place] [address] 01/05/2016 14:18:40 01/05/2016 16:17:34 Panic disorder without agoraphobia 90290653 F41.0 25 minute office visit with greater than 50% of the visit face-to-fa ce with the patient and/or family providing counseling and/or coordinati on of care. Mixed anxi ety and depressive disorder 409686852 F41.8 encourage pt to resume trial of effexor - pt states will begin med tomorrow - - pending see [facility] psychiatr st - [facility]. to see Mame on 02.01.16 Irritable bowel syndrome 07287046 K58.9 seen by GI last week - pending capsule endoscopy d/t unintentio nal wt loss, but pt has gained ~ 5 lbs recently, f/u c GI in ~ 6 months [id number] Roman Flores MD Main Office [address] [address] 02/24/2016 11:22:41 02/24/2016 12:28:21 Panic disorder without agoraphobia 31429976 F41.0 did not tolerate effexor, seen by Mame but could not get in to see psychiatri [facility] - encouraged her to f/u 1 more time c Mame to see where she can turn from here 25 minute office visit with greater than 50% of the visit face-to-fa ce with the patient and/or family providing counseling and/or coordinati on of care. Irritable bowel syndrome 86584206 K58.9 wt stable lately, no need for capsule endoscopy - f/u c GI in ~ 4-6 months Tobacco user 539255110 Z 72.0 acknowledg e that with so much stress at work now is not the best time to stop smoking, but encouraged her to make conscious effort to smoke less [id number] Roman Flores MD Main Office [address] [place] [address] 08/16/2016 10:50:48 08/16/2016 12:33:15 Adult health examination 447338199 Z00.00 Screening for malignant neoplasm of cervix 214696204 Z12.4 Screening for malignant neoplasm of breast 811427053 Z12.39 Irritable bowel syndrome 52781806 K58.9 wt is slightly up - hasn't been to work x few days, did take reglan this am - helped, cont f/u c GI - last seen 4. - gave fmla - reviewed his letter Panic diso rder without agoraphobia 16403366 F41.0 cont to f/u c new psychiatri . pt was denied for disability longterm - she states she will appeal Tobacco de pendence syndrome 34723933 F17.200 she has cut down lately - / ppd Health Concerns Section Related Observation LastModified by Organization Detai ls LastModified Time None Recorded Concern Status LastModified by Organization Details LastModified Time None Recorded Advance Directives Directive N: Payers Encounter Date Sequence Insurance Name Policy Number Policy Romero Covered Member ID Romero Member ID Guarantor Name 11/04/2015 1 [place] [id number] Monica A Milan [id number] Monica A [place] 12/15/2015 1 [place] [id number] Monica A [place] [id number] Monica A [place] 01/05/2016 1 [place] 104 Monica A Milan [id number] Omnica A [place] 02/24/2016 1 [place] [id number] Monica A Milan [id number] Monica A [place] 08/16/2016 1 [place] 104 Monica A Milan [id number] Monica A [place] Notes Date Note Type Note Provider Name and Address Organization Details Recorded Time 11/04/2015 text/html last seen in [place] 09/03 - doing well, had canceled capsule endoscopy. 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 reviewed ER H+P note, not DC Sum to review - will try to obtain infrequently uses zofran at home - when gets intense abd pain - pt prefers reglan - states it worked better for her at [facility] [place] pt states is seeing GI in a few weeks seeing Alicia Foster ADMISSIONS DIRECTOR about monthly, and ? had SI temporarily - but pt declines, states was a bad joke - she requested that pt see Mame ROY again. curr - No SI, abd pain, n/v using alprazolam about 1-3x/day prn - requests refill takes peppermint oil qd, no use of nulev in a long time Roman Flores MD [address] [address], [place], [address], [facility] [place] 11/04/2015 12:22:09 12/15/2015 text/html here for f/u oneill ic - she has been on ativan 0.5mg prn, and she called on 10.20 for refill - accidentally prescribed 2.0 mg - 8 tabs, has run out. she doesn't want to see Alicia Foster ADMISSIONS DIRECTOR anymore - does not have helpful provider relationship. she was referred by Mame - next f/u c Mame is in 2 months - ? she can get her to see a psychiatrist c [facility] no use of ssri in a long time pt states has called psychiatrists on her own - cannot get in Roman Flores MD [address] [facility] [address], [place], [address], [facility] [place] 12/16/2015 17:23:09 01/05/2016 text/html last ov on 10. started effexor - but pt admits she picked it up but didn't take it yet - she found it earlier today in back of med cabinet - promises to take it tomorrow. she takes xanax more freq at work, but on days she doesn't work - she still takes it qd. no withdrawal sxs. seen by GI last Sunday - rec. capsule endoscopy initially d/t unintentional wt loss, but has gained 5 lbs recently - still rec. it, will f/u in 6 months. Trisha higuera, [facility] 01/06/2016 14:49:28 02/24/2016 text/html seen by Mame bower month - referred to psychiatrist within [facility], but then told that they wouldn't accept her ins. pt did not tolerate effexor - side effect of heart racing/tremors. she takes xanax more freq at work, but on days she doesn't work - she still takes it qd. no withdrawal sxs. she worked less over the holidays. Roman Flores MD [address] [facility] [address], [place], [address], [facility] [place] 02/24/2016 16:18:30 08/16/2016 text/html here for annual PE. pt states has been seeing new psychiatrist - very helpful, has been off lorazepam, but she is giving her klonopin - seems to be helping her more but still work stress can easily trigger her anxiety. she also rec. a new antidep but didn't start yet she is distressed that her disability longterm paperwork got denied - she brought in the 5..17 letter for review. also she brought in 4..17 letter from . she wishes to make it very clear that she is not pursuing worker's comp thru [place] - has handled worker's comp. Roman Flores MD [address] [address], [place], [address], [facility] 08/16/2016 13:18:04 OBGyn Episode No OBEpisode recorded.
--- OUTSIDE RECORDS SUMMARY | 2024-04-08 10:55 | XMS_ITS | Patient Health Record ---
Author Organization [facility] Address [address] [facility] [address] [place] [address] Care Team Providers Care No Bake Molder Name Role Phone StewardNilsa umanzor Unavailable [phone] Reason For Referral No Information Plan Of Treatment No Information Insurance Providers Payer Name Payer Address Payer Phone Subscriber Number Group Number Insured Name Patient Relationship to Insured Coverage Start Date Coverage End Date [facility] [address] [address] [place] [address] ILA OCHOA Self - patient is the insured
--- OUTSIDE RECORDS SUMMARY | 2024-04-08 10:55 | XMS_ITS ---
Author Organization [facility] Address [address] [address] Care Team Providers Care Nursing Teacher Name Role Phone Bin Nisla Unavailable [phone] REASON FOR VISIT MENOPAUSAL SX'S Encounters Encounter Location Date Provider Diagnosis [facility] [address] [address] 11/30/2022 Nilsa Steward Plan Of Treatment No Information Progress Notes * ILA OCHOADOB: [birth year] (49 yo F)Acc No.[id number]:11/30/2022 Progress Note Patient:?ILA OCHOA Appointment Provider:?Nilsa gabriel M.D. :1975???Age:47 Y???Sex:Female D ate:11/30/2022 Address:[address] [place] [address], [place] [facility] Subjective: * Chief Complaints: * ???1. MENOPAUSAL SX'S. * Medical History:? Objective: * Vitals:? Assessment: Plan: * Treatment: * Images: Billing Information: * Visit Code:? * Procedure Codes:? * Electronic signature of Spencer Steward MD on 04/08/2024 at 10:55 AM EST Sign off status: Pending * Appointment Provider:?Nilsa Steward M.D. Date:?11/30/2022 Generated for Austin linn/Popeye/eTransmitting on:?04/08/2024 10:55 AM EST
--- OUTSIDE RECORDS SUMMARY | 2024-04-08 10:55 | XMS_ITS ---
Author Organization [facility] Address [address] [facility] [address] [place] [address] Care Team Providers Care Needle Bar Molder Name Role Phone Nilsa Steward Unavailable [phone] REASON FOR VISIT ALLERGIC/ANXIETY TO MASKS Encounters Encounter Location Date Provider Diagnosis [facility] [address] [address] 11/14/2022 Nilsa Steward Plan Of Treatment No Information Progress Notes * ILA OCHOADOB: [birth year] (47 yo F)Acc No.[id number]:11/14/2022 Patient:?ILA OCHOA :1975???Age:47 Y???Sex:Female Address:[address] [place] [address], [place], [address] * true * Date:? Generated for Austni linn/Popeye/eTransmitting on:?04/08/2024 10:54 AM EST
== END 2024-04-08 10:49 | disposition home or self-care (01) ==
PROVIDERS: PCP Internal Medicine; Visit Provider Internal Medicine
DX: Z00.00 Encounter for general adult medical examination without abnormal findings (principal); Z72.0 Tobacco use; F41.1 Generalized anxiety disorder; E78.00 Pure hypercholesterolemia, unspecified; N20.0 Calculus of kidney; E04.9 Nontoxic goiter, unspecified

== ENCOUNTER → 2024-04-08 10:04 | Outpatient (BNVA) | payer OTHER, SELFPAY | PROVIDERS: PCP Internal Medicine; Visit Provider Internal Medicine | DX: Z00.00 Encounter for general adult medical examination without abnormal findings (principal); F41.1 Generalized anxiety disorder; E78.00 Pure hypercholesterolemia, unspecified; E04.9 Nontoxic goiter, unspecified; N20.0 Calculus of kidney; Z72.0 Tobacco use | CPT/HCPCS: 96127; 99396 ==